=== PATIENT | male | born 1940 | race Caucasian/White ===

== ENCOUNTER 2019-05-31 09:02 | Outpatient (CLI) | payer MEDICARE, SELFPAY ==
--- NOTE | ~2019-05-31 | US_ITS ---
EXAMINATION: US right upper quadrant EXAM DATE: 05/31/2019 09:53 INDICATION: Upper quadrant abdominal pain. TECHNIQUE: Multiple grayscale and Doppler images of the abdomen right upper quadrant were obtained (b y a technologist who performed the scan) and subsequently reviewed. There is no prior study for lanie euceda. FINDINGS: The pancreatic head and body are normal in appearance. The pancreatic tail is not visualized. The l iver has normal echogenicity and contour. There is a 2.7 cm cyst in the liver. There is no evidence of intrahepatic biliary duct dilation. Portal venous flow was seen in the hepatopedal, normal direc tion and has normal Doppler waveform. No right-sided hydronephrosis. Common bile duct measures 3 mm, which is normal. The gallbladder is not specifically identified, but patient states no history of cholecystectomy. Correlation was made with CT scan dated 06/01/2016, 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 This is likely why the gallbladder is not identified on ultrasound. IMPRESSION: 1. 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 2. Liver Cyst. Reviewed, dictated and finalized at location B.
== END 2019-05-31 09:03 | disposition home or self-care (01) ==
LOC: ANHIMG 09:15
PROVIDERS: PCP Internal Medicine; Visit Provider Internal Medicine
DX: R10.9 Unspecified abdominal pain (principal); K76.89 Other specified diseases of liver
CPT/HCPCS: 76705

== ENCOUNTER 2020-12-17 09:41 | Outpatient (CLI) | payer MEDICARE, SELFPAY ==
--- NOTE | 2020-12-17 | ECG_ITS ---
Measurements Intervals [place] Rate: 66 P: 69 [place]: 138 QRS: 14 QRSD: 107 T: 57 QT: 382 QTc: 402 Interpretive Statements SINUS RHYTHM BASELINE ARTIFACT- II, III, AVF NORMAL ECG Electronically Signed On 12-17-2020 12:15:26 CDT by Roque Garner D.O.
--- NOTE | ~2020-12-17 | XR_ITS ---
XR chest 2V DATE: 12/17/2020 10:48 INDICATION: Preoperative testing TECHNIQUE: PA and lateral views COMPARISON: 02/19/2004 2 view chest FINDINGS: Heart size is within normal range. No hilar or mediastinal enlargement. No pulmonary infilt rate or consolidation, pleural effusion or pulmonary vascular congestion or pneumothorax is detected. Scoliosis and degenerative change of the thoracolumbar spine. Old healed left rib fractures. Osteopen ia. IMPRESSION: No active pulmonary disease Reviewed, dictated and finalized at location B. IMPRESSION: No active pulmonary disease
[2020-12-17 10:24] LABS: Basophils Percent Auto 0.6 % (0.2-1.2); Eosinophils Absolute Auto 0.2 K/mm3 (0-0.3); Eosinophils Percent Auto 2.6 % (0-4.4); Hematocrit 40.8 % (42.0-52.0); Hemoglobin 13.8 g/dL (14.0-18.0); Immature Granulocyte Absolute 0.01 K/mm3 (0.00-0.031); Immature Granulocyte Percent A 0.2 % (0-0.5); Lymphocytes Absolute Auto 1.79 K/mm3 (0.9-3.2); Lymphocytes Percent Auto 28.7 % (18.3-44.2); Mean Corpuscular HGB Conc 33.8 g/dl (32-36); Mean Corpuscular Hemoglobin 30.5 pg (26-34); Mean Corpuscular Volume 90.1 fl (80-100); Mean Platelet Volume 9.4 fl (7.4-10.4); Monocytes Absolute Auto 0.6 K/mm3 (0.1-0.6); Neutrophils Absolute Auto 3.7 K/mm3 (1.3-6.7); Neutrophils Percent Auto 58.9 % (45.5-73.1); Platelet Count Result 175 k/mm3 (150-375); Red Blood Count 4.53 M/mm3 (4.6-6.20); Red Cell Distribution Width 14.2 % (11.5-14.5); White Blood Count 6.2 K/mm3 (4.5-10.0)
[2020-12-17 10:34] LABS: INR 1.1; Prothrombin Time 14.1 Seconds (11.1-14.7)
[2020-12-17 10:45] LABS: Alanine Aminotransferase 26 U/L (4-50); Albumin Level 4.4 g/dL (3.5-5.1); Alkaline Phosphatase 54 U/L (38-126); Anion Gap 8 mmol/L (8-16); Aspartate Amino Transferase 28 U/L (17-59); Bilirubin,Total 0.7 mg/dL (0.2-1.3); Blood Urea Nitrogen 19 mg/dL (9-20); Calcium 9.5 mg/dL (8.4-10.2); Carbon Dioxide 28 mmol/L (22-30); Chloride 104 mmol/L (98-107); Estimated Glomerular Filt Rate > 60; Glucose 116 mg/dL (65-110); Potassium 4.2 mmol/L (3.4-5.0); Sodium 140 mmol/L (137-145)
== END 2020-12-17 09:42 | disposition home or self-care (01) ==
PROVIDERS: PCP Internal Medicine
DX: Z01.818 Encounter for other preprocedural examination (principal); M41.9 Scoliosis, unspecified; M85.88 Other specified disorders of bone density and structure, other site; M47.815 Spondylosis without myelopathy or radiculopathy, thoracolumbar region
CPT/HCPCS: 36415; 71046; 80053; 85025; 85610; 85730; 93005

== ENCOUNTER 2023-07-18 14:53 | Emergency (ER) | payer MEDICARE, SELFPAY ==
--- NOTE | ~2023-07-18 | CT_ITS ---
EXAMINATION: CT abdomen pelvis w con DATE: 07/18/2023 16:02 INDICATION: Abdominal pain. TECHNIQUE: Computed tomography (CT) of the abdomen and pelvis was performed with 100 mL Omnipaque 350 intravenous contrast. Automated exposure control and iterative reconstruction technique were employe d. The dose-length product was 360.94 mGy-cm. COMPARISON: CT abdomen and pelvis 06/01/16 FINDINGS: The visualized portions of the lung bases demonstrate mild atelectasis. A calcified left jerson ng nodule is consistent with old granulomatous disease. No pleural effusion. The heart size is normal . There are coronary artery calcifications. No pericardial effusion. There is a small sliding hiatal hernia. There are cysts in the liver measuring up to 3.8 cm. The gallbladder, spleen, pancreas, and a drenal glands are normal. There are cysts in the kidneys measuring up to 2.7 cm on the left. There ar e approximately 10 stones in right kidney measuring up to 3 mm. There are 2 stones in left kidney rosa suring up to 10 mm. The prostate is mildly enlarged. There are no dilated loops of bowel. The appendi x is normal. There is calcified atherosclerosis of the aorta and many of the other arteries. There ar e no pathologically enlarged lymph nodes. There is no free intraperitoneal fluid. There is lumbar dex troscoliosis and severe spondylosis. There is mild thoracic spondylosis. IMPRESSION: 1. Small sliding hiatal hernia. Reviewed, dictated and finalized at location E.
--- NOTE | 2023-07-18 14:56 | ED.ABDPAIN ---
HPI - Abdominal Pain General Chief Complaint: Abdominal Pain Stated Complaint: abd pain Time Seen by Provider: 07/18/23 14:56 Source: patient and family Mode of arrival: ambulatory Limitations: no limitations History of Present Illness HPI narrative: 83 years old white male came from home by private car with his family complaining of sharp abdominal pain across the mid abdomen, intermittent started 2 days ago. He denies aggravating or relieving factors. He denies radiation of pain, he denies any fever, chills, nausea, vomiting, urinary symptoms or constipation. History of abdominal hernia repair, appendectomy hypertension hyperlipidemia not on aspirin or anticoagulant medications, does not smoke or drink or use drugs Currently patient is asymptomatic he reports no abdominal pain at this time Related Data Home Medications Medication Instructions Recorded Confirmed amlodipine 5 mg tablet 5 mg PO DAILY 04/15/21 04/15/21 lorazepam 1 mg tablet 3 mg PO DAILY 04/15/21 04/15/21 magnesium 250 mg tablet 250 mg PO DAILY 04/15/21 04/15/21 multivitamin 1 tablet PO DAILY 04/15/21 04/15/21 nortriptyline 10 mg capsule 10 mg PO DAILY 04/15/21 04/15/21 omeprazole 20 mg capsule,delayed 20 mg PO DAILY 04/15/21 04/15/21 release simvastatin 40 mg tablet 40 mg PO DAILY 04/15/21 04/15/21 Allergies Allergy/AdvReac Type Severity Reaction Status Date / Time Penicillins Allergy Unknown unknown Verified 04/15/21 13:23 Review of Systems Review of Systems: All systems reviewed & are unremarkable except as noted in HPI and below PMFSH Social History Social History Smoking status: Never smoker Smoking end date: 03/22/94 Alcohol intake: never Substance use: never Exam Narrative: General appearance: Well-developed, well-nourished Skin: Normal color Head: Normocephalic, nontraumatic Eyes: Clear conjunctiva ENT: Oropharynx normal, ears normal, nose normal Neck: Supple, nontender Chest and respiratory: Airway patent, no respiratory distress, no accessory muscle use Heart: Regular rate/rhythm Abdomen: Soft, nontender, no organomegaly, quiet bowel sounds Vascular: Normal peripheral pulses, normal capillary refill. Musculoskeletal: Normal range of motion, nontender back Neurologic: Alert and oriented ?3, [employer] is normal as tested, no gross motor deficit Course Vital Signs Vital signs: Vital Signs Temperature 36.4 C L 07/18/23 14:59 Pulse Rate 80 07/18/23 14:59 Respiratory Rate 20 07/18/23 14:59 Blood Pressure 144/90 H 07/18/23 14:59 Pulse Oximetry 98 07/18/23 14:59 Oxygen Delivery Room Air 07/18/23 14:59 Temperature 36.6 C 07/18/23 15:31 Pulse Rate 73 07/18/23 16:35 Respiratory Rate 20 07/18/23 16:35 Blood Pressure 151/91 H 07/18/23 16:35 Pulse Oximetry 100 07/18/23 16:35 Oxygen Delivery Room Air 07/18/23 14:59 MDM - Abdominal Pain MDM Narrative Medical decision making narrative: 83 years old white male came with sharp stabbing pain across the mid abdomen started 2 days ago, on arrival to the ED is asymptomatic. Differential diagnosis anxiety like symptoms, constipation, colitis, diverticulitis, cholecystitis, gastritis or esophagitis. Blood workup today showed no acute abnormalities. Urinalysis showed no acute abnormalities CT abdomen pelvis with IV contrast showed no acute abnormality except sliding hiatal hernia. The diagnosis of abdominal pain is not clear at this time, my plan to discharge patient on Bentyl for the next 5 days and follow up with his family physician for further evaluation. Differential Diagnosis Differential diagnosis: Likely
[2023-07-18 14:59] VITALS: BP 144/90; PULSE 80; RESP 20; TEMP 36.4; O2SAT 98
[2023-07-18 15:18] LABS: Basophils Absolute Auto 0.1 K/mm3 (0.0-0.1); Basophils Percent Auto 0.7 % (0.2-1.2); Eosinophils Absolute Auto 0.2 K/mm3 (0-0.3); Hematocrit 38.5 % (42.0-52.0); Hemoglobin 12.8 g/dL (14.0-18.0); Immature Granulocyte Absolute 0.02 K/mm3 (0.00-0.031); Immature Granulocyte Percent A 0.2 % (0-0.5); Lymphocytes Absolute Auto 1.75 K/mm3 (0.9-3.2); Lymphocytes Percent Auto 20.1 % (18.3-44.2); Mean Corpuscular HGB Conc 33.2 g/dl (32-36); Mean Corpuscular Hemoglobin 29.2 pg (26-34); Mean Corpuscular Volume 87.9 fl (80-100); Mean Platelet Volume 9.2 fl (7.4-10.4); Monocytes Absolute Auto 0.8 K/mm3 (0.1-0.6); Monocytes Percent Auto 9.2 % (2.6-8.5); Neutrophils Absolute Auto 5.9 K/mm3 (1.3-6.7); Neutrophils Percent Auto 67.8 % (45.5-73.1); Platelet Count Result 203 k/mm3 (150-375); Red Blood Count 4.38 M/mm3 (4.6-6.20); Red Cell Distribution Width 13.9 % (11.5-14.5); White Blood Count 8.7 K/mm3 (4.5-10.0)
[2023-07-18] MEDS: SODIUM CHLORIDE 0.9% IV 1,000 ML 999 ML IV CONT (15:22)
[2023-07-18 15:31] VITALS: BP 146/91; PULSE 72; RESP 20; TEMP 36.6; O2SAT 98
[2023-07-18 15:31] LABS: Alanine Aminotransferase 25 U/L (6-50); Albumin Level 4.3 g/dL (3.5-5.1); Alkaline Phosphatase 72 U/L (38-126); Anion Gap 5 mmol/L (4-12); Aspartate Amino Transferase 28 U/L (17-59); Bilirubin,Total 0.6 mg/dL (0.2-1.3); Blood Urea Nitrogen 19 mg/dL (9-20); Calcium 9.4 mg/dL (8.4-10.2); Carbon Dioxide 27 mmol/L (22-30); Chloride 104 mmol/L (98-107); Estimated CRCL calculation 46 ml/min; Estimated Glomerular Filt Rate > 60; Glucose 98 mg/dL (65-110); Lipase 121 U/L (23-300); Potassium 4.8 mmol/L (3.4-5.0); Sodium 136 mmol/L (137-145)
[2023-07-18 15:32] LABS: Lactic Acid Reflex 1.4 mmol/L (0.7-2.0)
[2023-07-18 15:59] LABS: Appearance Urine Clear (Clear); Bacteria Urine None Seen /hpf; Bilirubin Urine Negative (Negative); Blood Urine Negative (Negative); Color Urine Yellow (Yellow); Glucose Urine UA Negative (Negative); Ketones Urine Negative (Negative); Leukocyte Esterase Ur Trace LEU/UL (Negative); Nitrate Urine Negative (Negative); Protein Urine Negative (Negative); RBC Urine 0-2 /hpf (0-2); Specific Grav Ur 1.007 (1.001-1.035); Squamous Epithelial Cell Urine None Seen /hpf (Few); Urobilinogen Urine 0.2 mg/dL (<2.0); WBC Urine 0-5 /hpf (0-3)
[2023-07-18 16:01] LABS: Add Urine Microscopic? YES
[2023-07-18 16:35] VITALS: BP 151/91; PULSE 73; RESP 20; O2SAT 100
[2023-07-18 16:44] VITALS: BP 151/91; PULSE 71; RESP 20; O2SAT 99
== END 2023-07-18 16:45 | disposition home or self-care (01) ==
PROVIDERS: Emergency Provider Emergency Medicine; PCP Internal Medicine
DX: R10.9 Unspecified abdominal pain (principal); Z87.891 Personal history of nicotine dependence; K44.9 Diaphragmatic hernia without obstruction or gangrene
CPT/HCPCS: 36415; 74177; 80053; 81001; 83605; 83690; 85025; 96360; 99284; J7030; Q9967

== ENCOUNTER 2023-08-25 12:35 | Outpatient (CLI) | payer MEDICARE, SELFPAY ==
--- NOTE | 2023-08-26 08:54 | WPDPFTINT ---
PFT Procedure Performed PFT Procedure Performed Spirometry with Pre/Post Bronchodilator Plethysmography (Lung Vol) Diffusing Cap (DLCO) Flow Vol Loop PFT Interpretation Lung volumes were measured with the body plethysmography method. Lung volumes are unremarkable. Spirometry showed and normal expiratory flow rates and a normal FEV1 to FVC ratio of 82%. Following administration of a bronchodilator there was no significant increase in the expiratory flow rates. Lung diffusion capacity is within the normal range at 87% predicted. The flow volume loop is unremarkable. Impression: Spirometry, lung volumes, and lung diffusion capacity all within the normal range.
== END 2023-08-25 12:36 | disposition home or self-care (01) ==
LOC: ANHPFT 12:38
PROVIDERS: PCP Internal Medicine; Visit Provider Internal Medicine
DX: J45.909 Unspecified asthma, uncomplicated (principal)
CPT/HCPCS: 94060; 94726; 94729

== ENCOUNTER 2023-12-14 08:09 | Emergency (ER) | payer MEDICARE, SELFPAY ==
--- NOTE | ~2023-12-14 | US_ITS ---
RIGHT LOWER EXTREMITY VENOUS ULTRASOUND Ordering provider: Abel Hollins MD History: . Calf pain, recent hip fracture . Comparison: None. FINDINGS: --COMMON FEMORAL: Patent and free of thrombus. Normal compressibility, phasic flow and augmentation. --PROXIMAL SUPERFICIAL FEMORAL: Patent and free of thrombus. Normal compressibility, phasic flow and augmentation. --DISTAL SUPERFICIAL FEMORAL: Patent and free of thrombus. Normal compressibility, phasic flow and au gmentation. --POPLITEAL: Patent and free of thrombus. Normal compressibility, phasic flow and augmentation. --POSTERIOR TIBIAL: Patent and free of thrombus. Normal compressibility, phasic flow and augmentation . IMPRESSION: Negative right lower extremity venous US. No deep vein thrombosis. Reviewed, dictated and finalized at location A.
[2023-12-14 08:19] VITALS: BP 159/90; PULSE 72; RESP 20; TEMP 36.6; O2SAT 100
[2023-12-14] MEDS: HYDROcodone/acetaminophen (*CRX) 5-325 MG TABLET 1 TAB PO (09:24)
[2023-12-14] MEDS: diazePAM INJ (*CRX) 10 MG/2 ML SYRINGE 5 MG IV PUSH (09:38)
[2023-12-14 09:43] VITALS: BP 126/80; PULSE 81; RESP 18; O2SAT 95
[2023-12-14 09:52] LABS: Basophils Absolute Auto 0.1 K/mm3 (0.0-0.1); Basophils Percent Auto 0.5 % (0.2-1.2); Eosinophils Absolute Auto 0.6 K/mm3 (0-0.3); Hematocrit 36.4 % (42.0-52.0); Hemoglobin 11.6 g/dL (14.0-18.0); Immature Granulocyte Absolute 0.03 K/mm3 (0.00-0.031); Immature Granulocyte Percent A 0.3 % (0-0.5); Lymphocytes Absolute Auto 0.86 K/mm3 (0.9-3.2); Lymphocytes Percent Auto 9.4 % (18.3-44.2); Mean Corpuscular HGB Conc 31.9 g/dl (32-36); Mean Corpuscular Hemoglobin 27.1 pg (26-34); Mean Platelet Volume 9.1 fl (7.4-10.4); Monocytes Absolute Auto 0.7 K/mm3 (0.1-0.6); Monocytes Percent Auto 7.5 % (2.6-8.5); Neutrophils Absolute Auto 6.9 K/mm3 (1.3-6.7); Neutrophils Percent Auto 75.3 % (45.5-73.1); Platelet Count Result 192 k/mm3 (150-375); Red Blood Count 4.28 M/mm3 (4.6-6.20); Red Cell Distribution Width 17.3 % (11.5-14.5); White Blood Count 9.2 K/mm3 (4.5-10.0)
[2023-12-14 10:06] LABS: Alanine Aminotransferase 22 U/L (6-50); Albumin Level 3.9 g/dL (3.5-5.1); Alkaline Phosphatase 238 U/L (38-126); Anion Gap 0 mmol/L (4-12); Aspartate Amino Transferase 29 U/L (17-59); Bilirubin,Total 0.6 mg/dL (0.2-1.3); Blood Urea Nitrogen 21 mg/dL (9-20); Calcium 9.1 mg/dL (8.4-10.2); Carbon Dioxide 31 mmol/L (22-30); Chloride 101 mmol/L (98-107); Estimated CRCL calculation 56 ml/min; Estimated Glomerular Filt Rate > 60; Glucose 89 mg/dL (65-110); Sodium 132 mmol/L (137-145)
[2023-12-14 10:17] LABS: INR 1.1; Partial Thromboplastin Time 28.3 Seconds (22.3-36.8); Prothrombin Time 15.1 Seconds (11.1-14.7)
[2023-12-14 10:42] VITALS: BP 112/68; PULSE 73; RESP 16; O2SAT 98
--- NOTE | 2023-12-14 11:21 | ED.GENADULT ---
HPI - General Adult General Chief complaint: Extremity Injury, Lower Stated complaint: RLL pain Time Seen by Provider: 12/14/23 08:41 History of Present Illness HPI narrative: This is an 83-year-old male presenting ED with chief complaint of right calf pain. Patient was recently diagnosed with a nondisplaced pelvic fracture. He has been treating non operatively. He has noticed that he has been having increased pain in his right calf as he has been favoring his right leg. Patient has not taken anything for pain control. He is not on anticoagulation. No swelling of the leg that he has noted. Related Data Home Medications Medication Instructions Recorded Confirmed amlodipine 5 mg tablet 5 mg PO DAILY 04/15/21 12/02/23 lorazepam 1 mg tablet 3 mg PO DAILY 04/15/21 12/02/23 multivitamin 1 tablet PO DAILY 04/15/21 12/02/23 simvastatin 40 mg tablet 40 mg PO DAILY 04/15/21 12/02/23 coenzyme Q10 200 mg capsule 200 mg PO DAILY 10/07/23 12/02/23 gabapentin 300 mg capsule 300 mg PO DAILY 10/07/23 12/02/23 Allergies Allergy/AdvReac Type Severity Reaction Status Date / Time Penicillins Allergy Unknown unknown Verified 12/02/23 14:09 [facility] Past Medical History Medical History Asthma BPH (benign prostatic hyperplasia) Chronic pain GERD (gastroesophageal reflux disease) HTN (hypertension) Hypercholesterolemia Osteoarthritis Spinal stenosis Surgical History Surgical History H/O uvulectomy History of knee replacement Hx of appendectomy Hx of tonsillectomy Family History Family History Mother Hypertension Acute myocardial infarction Manic depression Father Hypertension Cerebrovascular accident Carcinoma of colon Social History Social History Years smoked: 7 Smoking status: Former smoker Second hand tobacco smoke exposure: No Smoking end date: 03/22/65 Alcohol intake: never Substance use: never Substance use type: does not use Do You Feel Safe in your Home?: Yes Lack of Transportation: No Lack of Food: Never True Current Housing: I Have Housing Concerned About Future Housing: No Difficulty Paying Gas/Electric Bills: No Difficulty Paying for Meds: YES Currently Unemployed: No Education: High School Diploma/GED Difficulty w/ Childcare or Family Care: No Living arrangements: alone Occupation/Education: retired 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 Head: atraumatic. EYES: EOMI, NOSE: Atraumatic NECK: Trachea midline RESPIRATORY: No increased rate of breathing CARDIOVASCULAR: RRR, ABDOMINAL: Non-distended MUSCULOSKELETAl: Focal exam of the right leg revealed no swelling or edema. All compartments are soft. No increased pain with plantar flexion or dorsal flexion. Pulses are strong. Neuro vascularly intact. NEURO: Alert. Moving 4/4 extremities SKIN:: Warm, dry. Normal color PSYCHIATRIC: Normal affect Course Vital Signs Vital signs: Vital Signs Temperature 97.9 F 12/14/23 08:19 Pulse Rate 72 12/14/23 08:19 Respiratory Rate 20 12/14/23 08:19 Blood Pressure 159/90 H 12/14/23 08:19 Pulse Oximetry 100 12/14/23 08:19 Oxygen Delivery Room Air 12/14/23 08:19 Temperature 97.9 F 12/14/23 08:19 Pulse Rate 73 12/14/23 10:42 Respiratory Rate 16 12/14/23 10:42 Blood Pressure 112/68 12/14/23 10:42 Pulse Oximetry 98 12/14/23 10:42 Oxygen Delivery Room Air 12/14/23 08:19 Medical Decision Making MDM Narrative Medical decision making narrative: -Course: 83-year-old male presenting with right calf pain. DVT scan was negative. All compartments are soft.
[2023-12-14 11:43] VITALS: BP 139/75; PULSE 64; RESP 18; O2SAT 100
== END 2023-12-14 11:44 | disposition home or self-care (01) ==
PROVIDERS: Emergency Provider Emergency Medicine; PCP Internal Medicine
DX: M79.661 Pain in right lower leg (principal); J45.909 Unspecified asthma, uncomplicated; N40.0 Benign prostatic hyperplasia without lower urinary tract symptoms; G89.29 Other chronic pain; K21.9 Gastro-esophageal reflux disease without esophagitis; I10 Essential (primary) hypertension; E78.5 Hyperlipidemia, unspecified; M19.90 Unspecified osteoarthritis, unspecified site
CPT/HCPCS: 36415; 80053; 85025; 85610; 85730; 93971; 96374; 99284; A9270; J3360

== ENCOUNTER 2023-12-16 08:40 | Emergency (ER) | payer MEDICARE, SELFPAY ==
[2023-12-16 08:47] VITALS: BP 152/67; PULSE 117; RESP 20; TEMP 36.9; O2SAT 100
[2023-12-16 09:11] VITALS: BP 122/70; PULSE 103; RESP 31; O2SAT 100
--- NOTE | 2023-12-16 09:20 | ED.ALLEREA ---
HPI - Allergic Reaction General Chief complaint: Allergic Reaction Stated complaint: RASH ALL OVER Time Seen by Provider: 12/16/23 08:59 Source: patient and old records reviewed Mode of arrival: EMS Limitations: no limitations and altered mental status History of Present Illness HPI narrative: Patient is an 83-year-old male who presents the ED with report of right calf pain and rash. Patient reports he has had pain throughout his right calf for the last 3-4 days. He recently sustained a pelvic fracture which was treated non operatively. Seen in the ED here 2 days ago and had a negative DVT ultrasound. Was thought to be related to over compensation injury as patient does admit he has been favoring his right leg since the fx. Patient was given Valium and Tiger in the ED here with improvement of pain. Discharged with muscle relaxers and oxycodone. Patient reports soon after leaving the hospital for his ED visit, he developed a diffuse rash. Initially noticed on his legs, now spread throughout his trunk, chest, back, face. States the rash is very itchy. He called his primary care doctor yesterday and was prescribed a Medrol Dosepak. He took the 1st dose of steroids yesterday. He also took Benadryl last night without improvement. He did take the muscle relaxer and oxycodone yesterday, but states the rash started before this. Denies any other new medications, soaps, laundry detergents, body wash, lotions, foods. Patient does admit to being very anxious. Has history of anxiety. He denies shortness of breath, swelling of lips /tongue/throat, fevers. Related Data Home Medications Medication Instructions Recorded Confirmed amlodipine 5 mg tablet 5 mg PO DAILY 04/15/21 12/02/23 lorazepam 1 mg tablet 3 mg PO DAILY 04/15/21 12/02/23 multivitamin 1 tablet PO DAILY 04/15/21 12/02/23 simvastatin 40 mg tablet 40 mg PO DAILY 04/15/21 12/02/23 coenzyme Q10 200 mg capsule 200 mg PO DAILY 10/07/23 12/02/23 gabapentin 300 mg capsule 300 mg PO DAILY 10/07/23 12/02/23 Allergies Allergy/AdvReac Type Severity Reaction Status Date / Time hydrocodone Allergy Mild Itching Verified 12/16/23 12:59 Penicillins Allergy Unknown unknown Verified 12/16/23 09:19 Sulfa (Sulfonamide Allergy Rash Verified 12/16/23 09:19 Antibiotics) Review of Systems Review of Systems: All systems reviewed & are unremarkable except as noted in HPI. All systems reviewed & are unremarkable except as noted in HPI and below PMFSH Past Medical History Medical History Anxiety Asthma BPH (benign prostatic hyperplasia) Chronic pain GERD (gastroesophageal reflux disease) HTN (hypertension) Hypercholesterolemia Osteoarthritis Spinal stenosis Surgical History Surgical History H/O uvulectomy History of knee replacement Hx of appendectomy Hx of tonsillectomy Family History Family History Mother Hypertension Acute myocardial infarction Manic depression Father Hypertension Cerebrovascular accident Carcinoma of colon Social History Social History Years smoked: 7 Smoking status: Former smoker Second hand tobacco smoke exposure: No Smoking end date: 03/22/65 Alcohol intake: never Substance use: never Substance use type: does not use Do You Feel Safe in your Home?: Yes Lack of Transportation: No Lack of Food: Never True Current Housing: I Have Housing Concerned About Future Housing: No Difficulty Paying Gas/Electric Bills: No Difficulty Paying for Meds: YES Currently Unemployed: No Education: High School Diploma/GED Difficulty w/ Childcare or Family Care: No Living arrangements: alone Occupation/Education: retired Additional occupation/education comments
[2023-12-16] MEDS: diphenhydrAMINE HCl INJ 50 MG/ML VIAL 25 MG IV PUSH (09:25)
[2023-12-16] MEDS: methylPREDNISolone SOD SUCC 125 MG VIAL IV PUSH (09:29)
[2023-12-16] MEDS: FAMOTIDINE 20 MG/2 ML VIAL IV PUSH (09:31)
[2023-12-16] MEDS: KETOROLAC 15 MG/ML VIAL (*BKC) IV PUSH (09:38)
[2023-12-16] MEDS: ACETAMINOPHEN 500 MG TABLET 1000 MG PO (09:39)
[2023-12-16 09:41] VITALS: BP 140/71; PULSE 104; RESP 20; O2SAT 99
[2023-12-16 09:45] LABS: Basophils Percent Auto 0.3 % (0.2-1.2); Eosinophils Absolute Auto 0.9 K/mm3 (0-0.3); Eosinophils Percent Auto 5.4 % (0-4.4); Hematocrit 35.8 % (42.0-52.0); Hemoglobin 11.7 g/dL (14.0-18.0); Immature Granulocyte Absolute 0.12 K/mm3 (0.00-0.031); Immature Granulocyte Percent A 0.8 % (0-0.5); Lymphocytes Absolute Auto 1.01 K/mm3 (0.9-3.2); Lymphocytes Percent Auto 6.4 % (18.3-44.2); Mean Corpuscular HGB Conc 32.7 g/dl (32-36); Mean Corpuscular Hemoglobin 27.1 pg (26-34); Mean Corpuscular Volume 82.9 fl (80-100); Mean Platelet Volume 9.7 fl (7.4-10.4); Monocytes Absolute Auto 0.4 K/mm3 (0.1-0.6); Monocytes Percent Auto 2.7 % (2.6-8.5); Neutrophils Absolute Auto 13.3 K/mm3 (1.3-6.7); Neutrophils Percent Auto 84.4 % (45.5-73.1); Platelet Count Result 259 k/mm3 (150-375); Red Blood Count 4.32 M/mm3 (4.6-6.20); Red Cell Distribution Width 17.6 % (11.5-14.5); White Blood Count 15.7 K/mm3 (4.5-10.0)
[2023-12-16 09:57] LABS: Alanine Aminotransferase 29 U/L (6-50); Alkaline Phosphatase 237 U/L (38-126); Anion Gap 10 mmol/L (4-12); Aspartate Amino Transferase 37 U/L (17-59); Bilirubin,Total 0.5 mg/dL (0.2-1.3); Blood Urea Nitrogen 25 mg/dL (9-20); Calcium 9.4 mg/dL (8.4-10.2); Carbon Dioxide 21 mmol/L (22-30); Chloride 104 mmol/L (98-107); Estimated CRCL calculation 49 ml/min; Estimated Glomerular Filt Rate > 60; Glucose 101 mg/dL (65-110); Magnesium 2.1 mg/dL (1.6-2.3); Potassium 4.7 mmol/L (3.4-5.0); Sodium 135 mmol/L (137-145)
[2023-12-16 10:00] LABS: INR 1.2; Prothrombin Time 15.8 Seconds (11.1-14.7)
[2023-12-16 10:01] LABS: Partial Thromboplastin Time 28.7 Seconds (22.3-36.8)
[2023-12-16] MEDS: traMADol HCL (*CRX) 25 MG TABLET PO (11:07)
[2023-12-16 11:11] VITALS: BP 125/69; PULSE 90; RESP 20; TEMP 36.4; O2SAT 98
[2023-12-16] MEDS: hydrOXYzine HCL 25 MG TABLET PO (11:38)
[2023-12-16] MEDS: LORazepam INJ (*CRX) 2 MG/ML VIAL 0.5 MG IV PUSH (11:39)
[2023-12-16 13:20] VITALS: BP 142/70; PULSE 77; RESP 16; TEMP 36.5; O2SAT 99
== END 2023-12-16 13:21 | disposition home or self-care (01) ==
PROVIDERS: Emergency Provider Physician Assistant; PCP Internal Medicine
DX: M79.661 Pain in right lower leg (principal); F41.9 Anxiety disorder, unspecified; T78.40XA Allergy, unspecified, initial encounter; X58.XXXA Exposure to other specified factors, initial encounter; I10 Essential (primary) hypertension; E78.00 Pure hypercholesterolemia, unspecified; J45.909 Unspecified asthma, uncomplicated; N40.0 Benign prostatic hyperplasia without lower urinary tract symptoms; K21.9 Gastro-esophageal reflux disease without esophagitis; M19.90 Unspecified osteoarthritis, unspecified site; Z79.899 Other long term (current) drug therapy
CPT/HCPCS: 36415; 80053; 83735; 85025; 85610; 85730; 96374; 96375; 99284; A9270; J1200; J1885; J2060; J2919

== ENCOUNTER 2023-12-20 21:14 | Emergency (ER) | payer MEDICARE, SELFPAY ==
--- NOTE | ~2023-12-20 | CT_ITS ---
EXAMINATION: CT lumbar spine wo con DATE: 12/21/2023 08:07 INDICATION: Right-sided radicular pain of the lumbar spine. TECHNIQUE: Computed tomography (CT) of the lumbar spine was performed without intravenous contrast. A utomated exposure control and iterative reconstruction technique were employed. The dose-length produ ct was 343.92 mGy-cm. COMPARISON: Lumbar spine radiographs dated 09/25/2022 FINDINGS: 17 degree lumbar dextroscoliosis. 4 mm anterolisthesis L4 on L5 and 2 mm retrolisthesis L5 on S1. There is severe left-sided disc height loss at L2-L3 and L3-L4 with associated left-sided pred ominant degenerative endplate remodeling with some minimal associated vertebral body height loss. Rem aining vertebral body heights are normal. There is additional severe disc height loss at L5-S1 and wi th right-sided predominance at L4-L5. Moderate disc height loss at T10-T11 through L1-L2. There are a cute to subacute appearing sagittal oriented bilateral sacral insufficiency fractures there is a nond isplaced horizontal insufficiency fracture at S2. No fracture of the visualized lumbar or caudal-most thoracic spine. Bilateral nonobstructing renal stones measuring 4 mm at the left kidney and 2 mm the lower pole of the right kidney. There are bilateral renal parapelvic cysts. 1.3 cm long thin linear calcification at the lower pole of the left kidney most likely either atherosclerotic calcification o r mural calcific a shallower of the parapelvic cysts. The following disc levels are specifically disc ussed: T11-T12: Disc is bulging. There is mild left and severe right facet joint osteoarthritis. There is mi ld left and moderate to severe right neural foraminal stenosis. There is mild to moderate central can al stenosis. T12-L1: Disc is bulging. There is mild left and moderate right facet joint osteoarthritis. There is m ild bilateral neural foraminal stenosis. There is mild central canal stenosis. L1-L2: Disc is bulging. There is mild to moderate left and moderate right facet joint osteoarthritis. There is mild to moderate bilateral neural foraminal stenosis. There is mild central canal stenosis. L2-L3: Disc is bulging. There is moderate bilateral facet joint osteoarthritis. There is moderate jez ateral neural foraminal stenosis. Posterior decompression with right hemilaminotomy. There is mild ce ntral canal stenosis. L3-L4: Disc is bulging. There is moderate bilateral facet joint osteoarthritis. There is moderate jez ateral, left greater than right neural foraminal stenosis. Posterior decompression with right hemilam inotomy. There is no central canal stenosis. L4-L5: Disc is bulging. There is severe bilateral, right greater than left facet joint osteoarthritis . There is moderate bilateral neural foraminal stenosis. Posterior decompression with bilateral hemil aminotomies. There is no central canal stenosis. L5-S1: Disc is bulging. There is moderate bilateral, right greater than left. facet joint osteoarthri tis. There is moderate bilateral neural foraminal stenosis. Posterior decompression with right-sided hemilaminotomy. There is no central canal stenosis. IMPRESSION: 1. 17 degrees lumbar dextroscoliosis with severe spondylosis. 2. Posterior decompression with laminotomies at several levels in the mid to lower lumbar spine. 3. Bilateral nonobstructing nephrolithiasis. Reviewed, dictated and finalized at location A. IMPRESSION: 1. 17 degrees lumbar dextroscoliosis with severe spondylosis. 2. Posterior decompression with laminotomies at several levels in the mid to lo wer lumbar spine. 3. Bilateral nonobstructing nephrolithiasis.
--- NOTE | ~2023-12-20 | XR_ITS ---
XR hip LT min 3V w AP pelvis Ordering provider: Abel Hollins MD History: . F/u for non-displaced pelvic fx FALL X 2 MOS AGO . Comparison: December 02, 2023 FINDINGS: BONES: Left acetabular fracture is noted unchanged from previous examination. Fracture of the left in ferior pubic ramus is also noted. Possible fracture in the left superior pubic ramus. HIP JOINT SPACES: Mild bilateral osteoarthritic changes. SACROILIAC JOINT SPACES/LUMBAR SPINE: The sacroiliac joint spaces are normal. Mild degenerative cruz es of the visualized lower lumbar spine. PUBIC SYMPHYSIS: Normal. SOFT TISSUES: Normal. IMPRESSION: Fracture of the left acetabulum and left inferior pubic ramus. Possible fracture in the left superior pubic ramus. Reviewed, dictated and finalized at location A. IMPRESSION: Fracture of the left acetabulum and left inferior pubic ramus. Possible fractur e in the left superior pubic ramus.
[2023-12-20 21:18] VITALS: BP 139/90; PULSE 96; RESP 14; TEMP 36.8; O2SAT 100
[2023-12-21 05:08] VITALS: BP 156/124; PULSE 89; RESP 18; O2SAT 100
--- NOTE | 2023-12-21 05:08 | PC.NURSE ---
pt c/o right lower back pain that shoots down his right leg to his heel. Pt says he believes it is the result of a fall he had in October that he has already been evaluated for. Pt says he was told by an orthopedic doctor here at [facility] that his injuries would heal on their own. Pt has been using a walker at home since the fall in October
[2023-12-21 05:22] VITALS: BP 150/88; PULSE 89; O2SAT 100
[2023-12-21] MEDS: KETOROLAC 30 MG/ML VIAL (*BKC) IM (07:40)
[2023-12-21] MEDS: traMADol HCL (*CRX) 50 MG TABLET PO (07:40)
[2023-12-21] MEDS: ACETAMINOPHEN 500 MG TABLET 1000 MG PO (07:41)
[2023-12-21] MEDS: LORazepam (*CRX) 1 MG TABLET PO (07:41)
[2023-12-21 07:46] VITALS: BP 176/90; PULSE 85; RESP 16; O2SAT 100
--- NOTE | 2023-12-21 10:13 | ED.GENADULT ---
HPI - General Adult General Chief complaint: Back Pain/Injury Stated complaint: back pain going down right leg Time Seen by Provider: 12/21/23 07:02 History of Present Illness HPI narrative: This is an 83-year-old male with anxiety and a nondisplaced left pelvic fracture presenting for right leg pain. Patient was seen on 12/13 for right leg calf pain and had negative DVT scan. That time was believed to be a compensation injuries he had been favoring his right leg. He was then seen 2 days later for an itchy rash which was believed to be due to the [place]. Now he is having an achy pain in lower back radiating down the side of leg. Is worse with movement. Patient ran out his pain medications. He has not been taking his lorazepam because he has thought he was not supposed to take it along with muscle relaxers and now he is incredibly anxious. No falls or other complaints. Related Data Home Medications Medication Instructions Recorded Confirmed amlodipine 5 mg tablet 5 mg PO DAILY 04/15/21 12/02/23 lorazepam 1 mg tablet 3 mg PO DAILY 04/15/21 12/02/23 multivitamin 1 tablet PO DAILY 04/15/21 12/02/23 simvastatin 40 mg tablet 40 mg PO DAILY 04/15/21 12/02/23 coenzyme Q10 200 mg capsule 200 mg PO DAILY 10/07/23 12/02/23 gabapentin 300 mg capsule 300 mg PO DAILY 10/07/23 12/02/23 Allergies Allergy/AdvReac Type Severity Reaction Status Date / Time hydrocodone Allergy Mild Itching Verified 12/16/23 12:59 Penicillins Allergy Unknown unknown Verified 12/16/23 09:19 Sulfa (Sulfonamide Allergy Rash Verified 12/16/23 09:19 Antibiotics) [facility] Past Medical History Medical History Anxiety Asthma BPH (benign prostatic hyperplasia) Chronic pain GERD (gastroesophageal reflux disease) HTN (hypertension) Hypercholesterolemia Osteoarthritis Spinal stenosis Surgical History Surgical History H/O uvulectomy History of knee replacement Hx of appendectomy Hx of tonsillectomy Family History Family History Mother Hypertension Acute myocardial infarction Manic depression Father Hypertension Cerebrovascular accident Carcinoma of colon Social History Social History Years smoked: 7 Smoking status: Former smoker Second hand tobacco smoke exposure: No Smoking end date: 03/22/65 Alcohol intake: never Substance use: never Substance use type: does not use Do You Feel Safe in your Home?: Yes Lack of Transportation: No Lack of Food: Never True Current Housing: I Have Housing Concerned About Future Housing: No Difficulty Paying Gas/Electric Bills: No Difficulty Paying for Meds: YES Currently Unemployed: No Education: High School Diploma/GED Difficulty w/ Childcare or Family Care: No Living arrangements: alone Occupation/Education: retired 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 EYES: EOMI, NOSE: Atraumatic NECK: Trachea midline RESPIRATORY: No increased rate of breathing CARDIOVASCULAR: RRR, ABDOMINAL: Non-distended MUSCULOSKELETAl: Focal exam of the right leg revealed no overlying skin changes. No areas of tenderness. Compartments are soft. No overlying skin changes. Straight leg negative. Pulses intact NEURO: Alert. Moving 4/4 extremities SKIN:: Warm, dry. Normal color PSYCHIATRIC: Normal affect Course Vital Signs Vital signs: Vital Signs Temperature 98.2 F 12/20/23 21:18 Pulse Rate 96 12/20/23 21:18 Respiratory Rate 14 12/20/23 21:18 Blood Pressure 139/90 12/20/23 21:18 Pulse Oximetry 100 12/20/23 21:18 Oxygen Delivery Room Air 12/20/23 21:18
[2023-12-21 11:32] VITALS: BP 152/80; PULSE 82; RESP 16; O2SAT 98
== END 2023-12-21 11:34 | disposition home or self-care (01) ==
PROVIDERS: Emergency Provider Emergency Medicine; PCP Internal Medicine
DX: M47.26 Other spondylosis with radiculopathy, lumbar region (principal); F41.9 Anxiety disorder, unspecified; S32.592D Other specified fracture of left pubis, subsequent encounter for fracture with routine healing; S32.402D Unspecified fracture of left acetabulum, subsequent encounter for fracture with routine healing; I10 Essential (primary) hypertension; E78.00 Pure hypercholesterolemia, unspecified; J45.909 Unspecified asthma, uncomplicated; N40.0 Benign prostatic hyperplasia without lower urinary tract symptoms; K21.9 Gastro-esophageal reflux disease without esophagitis; M19.90 Unspecified osteoarthritis, unspecified site; Z96.659 Presence of unspecified artificial knee joint; Z87.891 Personal history of nicotine dependence; N20.0 Calculus of kidney; X58.XXXD Exposure to other specified factors, subsequent encounter
CPT/HCPCS: 72131; 73502; 96372; 99284; A9270; J1885

== ENCOUNTER 2024-01-10 01:28 | Day surgery (SDC) | payer MEDICARE, SELFPAY ==
[2023-12-24 15:17] VITALS: BMI 23.6
--- NOTE | 2024-01-10 11:04 | WPDANESEPPF ---
Anes - Initial Pre Proc Eval Procedure: Operation Date: 01/10/24 12:30 Proposed Procedures p Esophagogastroduodenoscopy - Sim Guzmán MD Date/Time: 01/10/24 11:04 Surgeon: Sim Guzmán MD Pre Op Diagnosis: GERD Patient Data Age: 83 Gender: M Height: 1.75 m Weight: 72.6 kg Allergies Allergy/AdvReac Type Severity Reaction Status Date / Time hydrocodone Allergy Mild Itching Verified 12/24/23 15:09 Penicillins Allergy Unknown unknown Verified 12/24/23 15:09 Sulfa (Sulfonamide Allergy Rash Verified 12/24/23 15:09 Antibiotics) Home Medications Medication Instructions Recorded Confirmed Type amlodipine 5 mg tablet 5 mg PO DAILY 04/15/21 12/24/23 History lorazepam 1 mg tablet 3 mg PO DAILY 04/15/21 12/24/23 History multivitamin 1 tablet PO DAILY 04/15/21 12/24/23 History simvastatin 40 mg tablet 40 mg PO DAILY 04/15/21 12/24/23 History tamsulosin 0.4 mg capsule See Rx Instructions .Route 09/22/23 12/24/23 Rx .COMPLEX #90 caps coenzyme Q10 200 mg capsule 200 mg PO DAILY 10/07/23 12/24/23 History gabapentin 300 mg capsule 300 mg PO DAILY 10/07/23 12/24/23 History diclofenac sodium 75 mg 75 mg PO BID #60 tabs 12/02/23 12/24/23 Rx tablet,delayed release acetaminophen 500 mg tablet 1,000 mg PO TID PRN jayashree 7 days #42 12/14/23 12/24/23 Rx tabs methocarbamol 750 mg tablet 1,500 mg PO TID #30 tabs 12/14/23 12/24/23 Rx hydroxyzine HCl 25 mg tablet 25 mg PO TID PRN itching #15 tabs 12/16/23 12/24/23 Rx tramadol 50 mg tablet 50 mg PO Q6H PRN pain #20 tabs 12/21/23 12/24/23 Rx pantoprazole 40 mg tablet,delayed See Rx Instructions .Route 12/23/23 12/24/23 Rx release .COMPLEX #90 tabs prednisone 10 mg tablet 10 mg PO BID #20 tabs 12/23/23 12/24/23 Rx prednisone 10 mg tablet 20 mg PO BID #20 tabs 12/27/23 Rx Patient hx anesthesia problems: none Family hx anesthesia problems: none Results Review: All pre-operative results and documents have been reviewed as part of the pre-operative evaluation. [facility] Past Medical History Medical History Anxiety Asthma BPH (benign prostatic hyperplasia) Chronic pain GERD (gastroesophageal reflux disease) HTN (hypertension) Hypercholesterolemia Osteoarthritis Spinal stenosis Surgical History Surgical History H/O uvulectomy History of knee replacement Hx of appendectomy Hx of tonsillectomy Family History Family History Mother Hypertension Acute myocardial infarction Manic depression Father Hypertension Cerebrovascular accident Carcinoma of colon Social History Social History Years smoked: 7 Smoking status: Never smoker Second hand tobacco smoke exposure: No Smoking end date: 03/22/65 Alcohol intake: never Substance use: never Substance use type: does not use Do You Feel Safe in your Home?: Yes Lack of Transportation: No Lack of Food: Never True Current Housing: I Have Housing Concerned About Future Housing: No Difficulty Paying Gas/Electric Bills: No Difficulty Paying for Meds: YES Currently Unemployed: No Education: High School Diploma/GED Difficulty w/ Childcare or Family Care: No Living arrangements: alone Occupation/Education: retired 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
--- NOTE | 2024-01-10 11:06 | PM.HPGS ---
History of Present Illness History of Present Illness Consent: Risks, benefits, and alternatives have been discussed and questions answered. Patient agrees to proceed with procedure. Chief complaint: GERD Narrative: Terry Jones is a 83 year old male with gerd taking medication for over 30 years but recently more symptomatic, switched to pantoprazole that is helping better but no recent EGD. Review of Systems Review of Systems: All systems reviewed & are unremarkable except as noted in HPI and below PMFSH Past Medical History Medical History Anxiety Asthma BPH (benign prostatic hyperplasia) Chronic pain GERD (gastroesophageal reflux disease) HTN (hypertension) Hypercholesterolemia Osteoarthritis Spinal stenosis Surgical History Surgical History H/O uvulectomy History of knee replacement Hx of appendectomy Hx of tonsillectomy Family History Family History Mother Hypertension Acute myocardial infarction Manic depression Father Hypertension Cerebrovascular accident Carcinoma of colon Social History Social History Years smoked: 7 Smoking status: Never smoker Second hand tobacco smoke exposure: No Smoking end date: 03/22/65 Alcohol intake: never Substance use: never Substance use type: does not use Do You Feel Safe in your Home?: Yes Lack of Transportation: No Lack of Food: Never True Current Housing: I Have Housing Concerned About Future Housing: No Difficulty Paying Gas/Electric Bills: No Difficulty Paying for Meds: YES Currently Unemployed: No Education: High School Diploma/GED Difficulty w/ Childcare or Family Care: No Living arrangements: alone Occupation/Education: retired 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[employer] Gender identity (if verbalized by the patient): Male Spiritual care concerns: No Meds Home Medications and Allergies Home Medications Medication Instructions Recorded Confirmed Type amlodipine 5 mg tablet 5 mg PO DAILY 04/15/21 12/24/23 History lorazepam 1 mg tablet 3 mg PO DAILY 04/15/21 12/24/23 History multivitamin 1 tablet PO DAILY 04/15/21 12/24/23 History simvastatin 40 mg tablet 40 mg PO DAILY 04/15/21 12/24/23 History tamsulosin 0.4 mg capsule See Rx Instructions .Route 09/22/23 12/24/23 Rx .COMPLEX #90 caps coenzyme Q10 200 mg capsule 200 mg PO DAILY 10/07/23 12/24/23 History gabapentin 300 mg capsule 300 mg PO DAILY 10/07/23 12/24/23 History diclofenac sodium 75 mg 75 mg PO BID #60 tabs 12/02/23 12/24/23 Rx tablet,delayed release acetaminophen 500 mg tablet 1,000 mg PO TID PRN jayashree 7 days #42 12/14/23 12/24/23 Rx tabs methocarbamol 750 mg tablet 1,500 mg PO TID #30 tabs 12/14/23 12/24/23 Rx hydroxyzine HCl 25 mg tablet 25 mg PO TID PRN itching #15 tabs 12/16/23 12/24/23 Rx tramadol 50 mg tablet 50 mg PO Q6H PRN pain #20 tabs 12/21/23 12/24/23 Rx pantoprazole 40 mg tablet,delayed See Rx Instructions .Route 12/23/23 12/24/23 Rx release .COMPLEX #90 tabs prednisone 10 mg tablet 10 mg PO BID #20 tabs 12/23/23 12/24/23 Rx prednisone 10 mg tablet 20 mg PO BID #20 tabs 12/27/23 Rx Allergies Allergy/AdvReac Type Severity Reaction Status Date / Time hydrocodone Allergy Mild Itching Verified 12/24/23 15:09 Penicillins Allergy Unknown unknown Verified 12/24/23 15:09 Sulfa (Sulfonamide Allergy Rash Verified 12/24/23 15:09 Antibiotics) Exam Const: General: comfortable and no acute distress HENMT: Face/Nose/Sinus: Normal nares present Eyes: General: appearance normal, both eyes and all related structures Neck: Neck: no JVD Resp: Auscultation: clear to auscultation bilaterally Cardio: Rate: regular rate Rhythm: regular rhythm GI: Inspection:
[2024-01-10] MEDS: LACTATED RINGERS 1,000 ML 150 ML IV CONT (11:09)
[2024-01-10 11:13] VITALS: BP 144/86; PULSE 90; RESP 16; TEMP 36; O2SAT 99; BMI 22.4
[2024-01-10] MEDS: BENZOCAINE (*SP) 60 ML SPRAY CAN (HURRICAINE) 1 SPRAY MUCOUS MEM (11:15)
[2024-01-10 11:26] VITALS: BP 106/69; PULSE 73; RESP 24; O2SAT 99
[2024-01-10 11:36] VITALS: BP 137/82; PULSE 67; RESP 20; O2SAT 100
[2024-01-10 11:46] VITALS: BP 134/82; PULSE 71; RESP 18; O2SAT 100
== END 2024-01-10 12:00 | disposition home or self-care (01) ==
PROVIDERS: PCP Internal Medicine; Visit Provider Internal Medicine Gastroenterology
PROC: 0DJ08ZZ Inspection of Upper Intestinal Tract, Via Natural or Artificial Opening Endoscopic (ICD-10-PCS; CPT 43235; principal; 2024-01-10 12:30)
DX: K21.00 Gastro-esophageal reflux disease with esophagitis, without bleeding (principal); K29.50 Unspecified chronic gastritis without bleeding; K44.9 Diaphragmatic hernia without obstruction or gangrene; G89.29 Other chronic pain; I10 Essential (primary) hypertension; E78.00 Pure hypercholesterolemia, unspecified; N40.0 Benign prostatic hyperplasia without lower urinary tract symptoms; F41.9 Anxiety disorder, unspecified; J45.909 Unspecified asthma, uncomplicated; M48.00 Spinal stenosis, site unspecified; Z79.891 Long term (current) use of opiate analgesic; Z79.52 Long term (current) use of systemic steroids; Z98.890 Other specified postprocedural states; Z80.0 Family history of malignant neoplasm of digestive organs; Z82.49 Family history of ischemic heart disease and other diseases of the circulatory system
CPT/HCPCS: 43239; 88305; J2003; J2704; J7120

== ENCOUNTER 2024-02-09 13:40 | Outpatient (CLI) | payer MEDICARE, SELFPAY ==
--- NOTE | ~2024-02-09 | XR_ITS ---
CHEST RADIOGRAPH, PA AND LATERAL CLINICAL HISTORY: dyspnea . COMPARISON: 12/17/2020 TECHNIQUE: PA and lateral views of the chest. FINDINGS The cardiomediastinal silhouette is unremarkable. Stable nodularity within the left hemithorax, likely calcified granulomas. The remainder of the lungs are clear. Visualized osseous structures and soft tissues are unremarkable. IMPRESSION: No focal infiltrate or effusion. Reviewed, dictated and finalized at location A. 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
== END 2024-02-09 13:41 | disposition home or self-care (01) ==
LOC: ANHIMG 13:46
PROVIDERS: PCP Internal Medicine; Visit Provider Internal Medicine
DX: R06.00 Dyspnea, unspecified (principal)
CPT/HCPCS: 71046

== ENCOUNTER 2024-07-10 08:25 | Outpatient (CLI) | payer MEDICARE, SELFPAY ==
--- NOTE | ~2024-07-10 | XR_ITS ---
EXAMINATION: XR UGIAC w small bowel DATE: 07/10/2024 11:10 INDICATION: Gastroesophageal reflux disease without esophagitis. TECHNIQUE: The patient drank thick barium, gas-producing crystals, and thin barium. Conventional supi ne abdomen radiographs and fluoroscopic spot radiographs of the esophagus, stomach, and proximal smal l bowel were obtained. Additional overhead radiographs were obtained during the transit through the s mall bowel. Spot fluoroscopic images of the small bowel were obtained upon contrast reaching the cec um. Fluoroscopy exposure time was 2.4 minutes. A total of 7 overhead radiographs 801 fluoroscopic sam ges were recorded. Total DAP was 66.494 mGycm^2 COMPARISON: None. FINDINGS: Motor Route Carrier radiograph demonstrates moderate amount of scattered colonic stool. Mild lumbar dextrocurvature with severe spondylosis. The esophagus is normal without mass or stricture. Esophageal motility is n ormal. Moderate-sized sliding-type hiatal hernia with gastroesophageal junction possibly 7 cm above l evel of the diaphragm. There was no gastroesophageal reflux with provocative maneuvers. The stomach i s otherwise normal. Transit time from the stomach to proximal colon was approximately 1.5 hours. There is normal caliber and mucosal fold pattern throughout the small bowel. Terminal ileum is normal. No tethering or abno rmal mass effect observed upon the small bowel with real-time fluoroscopy. IMPRESSION: 1. Moderate-sized sliding-type hiatal hernia without gastroesophageal reflux with provocative maneuve rs. 2. Normal small bowel follow-through with transit time to the colon of 1.5 hours. Reviewed, dictated and finalized at location A. IMPRESSION: 1. Moderate-sized sliding-type hiatal hernia without gastroesophageal reflux wi th provocative maneuvers. 2. Normal small bowel follow-through with transit time to the colon of 1.5 hour s.
--- OUTSIDE RECORDS SUMMARY | 2024-07-10 09:00 | XMS_ITS ---
Author Organization [facility], Address [address] [facility] [address] [place] [address] Care Team Providers Care Custom Seamstress Name Role Phone Yordy Correia MD Primary Care Provider Alex Rocha [phone] REASON FOR VISIT call back Encounters Encounter Location Date Provider Diagnosis [facility] [address] [facility] [address] [place] [address] 02/04/2024 Alex Buck PLAN OF TREATMENT No Information
--- OUTSIDE RECORDS SUMMARY | 2024-07-10 09:01 | XMS_ITS | Patient Health Record ---
Author Organization [facility] Address [address] [address] Care Team Providers Care German Instructor Name Role Phone Yordy Correia MD Primary Care Provider Alex Rocha Unavailable [phone] ALLERGIES Allergen (clinical drug ingredient) Drug/Non Drug Allergy documented on EMR Reaction Allergy Type Onset Date Status amoxicillin Amoxicillin rash Drug Allergy Act zain penicillamine Penicillamine rash Drug Allergy Active RESULTS Component Value Reference Range Notes MRI : Lumbar spine with and without Contrast Reviewed date:01/31/2024 03:04:32 PM Interpretation:medicare/aetna Performing Lab: Notes/Report: medicare/aetna X ray : Lumbar spine 5 views , AP, Lateral, Spot, Flexion and Extension Reviewed date:12/30/2023 01:34:49 PM Interpretation:1210 Performing Lab: Notes/Report: 1210 Ultrasound : Arterial Dopple r Study, Lower extremities, Bilateral with Exercise Reviewed date:05/09/2024 10:19:43 AM Interpretation:medicare/aetna Performing Lab: Notes/Report: medicare/aetna REASON FOR REFERRAL Reason DIAGNOSES: back pain , DDD, HNP, radiculopathy, suspected PVD 3 times per week for 3 weeks eval and treat, exercise, modalities per therapist's discretion; HEP Referral Organization [facility] Referring Provider First Name Alex Referring Provider Last Name Heber Referring Provider Speciality Orthopedic Surgery Referred Provider Specialty Physical The rapy Referral Priority Routine MEDICATIONS Medication SIG (Take, Route, Frequency, Duration) Notes Start Date End Date Status traMADol HCl 50 MG 1 tablet as needed Orally every 4-6 hours for 7 days 01/27/2024 Not-Taking Align Active Aleve Not-Taking Pantoprazole Sodium Active Omeprazole Not-Takin g Benadryl Active Gabapentin Active Tylenol Not-Taking Magnesium Not-Taking Tamsulosin HCl Activ e amLODIPine Besylate Active CoQ10 Active Ibuprofen 800 MG TAKE 1 TABLET BY MOUTH THREE TIMES A DAY WITH FOOD OR MILK NEEDED FOR 30 DAYS for 30 LAST FILL FROM US. OTC OR PCP TO REFILL Not-Taking Multivitamin Active diazePAM Active Lorazepam Active Simvastatin Active PROBLEMS Problem Type ICD Code Onset Dates Problem Status W/U Status Risk SNOMED Code Notes Problem Sciatica (M54.30) Active confirmed Scia channing (14705134) Problem HNP (herniated nucleus pulposus), lumbar (M51.26) Active confirmed Displacement of lumbar intervertebral disc without myelopathy (95237773) Problem Sciatica, right side (M54.31) Active confirmed Right side sci atica (666490253346055) Problem Degenerative spondylolisthesis (M43.10) Active confirmed Degenerative spondylolisthesis (9369796) Problem DDD (degenerative disc disease), lumbar (M51.36) Active confirmed Degenerative disc disease (50881534) Problem Scoliosis (M41.9) Active confirmed Scol iosis (765406430) 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 Lumbosacral spondylosis without myelopathy (04991823) Problem Lumbosacral spondylosis (M47.817) Active confirmed Lumbosacral spondylosis (972016338) Problem Acute bilateral low back pain with right-sided sciatica (M54.41) Active confirmed Sciatica (98722550 ) Problem PVD (peripheral vascular disease) (I73.9) Active confirmed Peripheral vasc ular disease (293517453) VITAL SIGNS Height 69 in 03/06/2024 Weight 160 lbs 03/06/2024 BMI 23.63 kg/m2 03/06/2024 PROCEDURES Procedure Date Ordered Date Performed Result Body Sit e Lumbar Transforaminal Epidural Steroid Injection 01/27/2024 02/01/2024 medicare/aetn a services supplement Lumbar Transforaminal Epidural Steroid Injection 01/03/2024 01/03/2024 medicare/supplement Encounters Encounter Location Date Provider Diagnosis [facility] [address] [facility] [address] [place] [address] 12/17/2023 Alex Buck [facility], [address] [address] 12/30/2023 Alex Buck DDD (degenerative di sc disease), lumbar M51.36 ; Other low back pain M54.59 ; Lumbar contusion S30.0XXA ; Scoliosis M41.9 ; 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 and Lumbar radicular pain M54.16 [facility], [address] [address] 01/27/2024 Alex Buck Lumbar radiculopathy M54.16 ; HNP (herniated nucleus pulposus), lumbar M51.26 ; Other low back pain M54.59 ; DDD (degenerative disc disease), lumbar M51.36 ; Scoliosis M41.9 and 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 [facility], [address] [address] 03/06/2024 Alex Buck HNP (herniated nucle us pulposus), lumbar M51.26 ; Lumbar radiculopathy M54.16 ; Disc Degeneration, Lumbar Region with Leg Pain M51.361 ; Scoliosis M41.9 ; 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 and Knee pain, right M25.561 [facility], [address] [address] 01/12/2024 Alex Buck [facility], [address] [address] 02/04/2024 Alex Buck [facility] [address] [place] [id number] 01/03/2024 Alex Buck HNP (herniated nucle us pulposus), lumbar M51.26 ; 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 ; Other low back pain M54.59 ; Lumbar radicular pain M54.16 and Scoliosis M41.9 ASSESSMENTS Encounter Date Diagnosis Assessment Notes Treatment Notes Treatment Clinical Notes 12/30/2023 DDD (degenerative disc disease), lumbar (ICD-10 - M51.36) 01/27/2024 Lumbar radiculopathy (ICD-10 - M54.16) 03/06/2024 HNP (herniated nucleus pulposus), lumbar (ICD-10 - M51.26) 01/03/2024 HNP (herniated nucleus pulposus), lumbar (ICD-10 - M51.26) 12/30/2023 Other low back pain (ICD-10 - M54.59) 01/27/2024 HNP (herniated nucleus pulposus), lumbar (ICD-10 - M51.26) 03/06/2024 Lumbar radiculopathy (ICD-10 - M54.16) 01/03/2024 Facet degeneration o f lumbar region (ICD-10 - M47.816) 12/30/2023 Lumbar contusion (ICD-10 - S30.0XXA) 01/27/2024 Other low back pain (ICD-10 - M54.59) 03/06/2024 Disc Degeneration, Lumbar Region with Leg Pain (ICD-10 - M51.361) 01/03/2024 Other low back pain (ICD-10 - M54.59) 12/30/2023 Scoliosis (ICD-10 - M41.9) 01/27/2024 DDD (degenerative disc disease), lumbar (ICD-10 - M51.36) 03/06/2024 Scoliosis (ICD-10 - M41.9) 01/03/2024 Lumbar radicular jayashree n (ICD-10 - M54.16) 12/30/2023 Facet degeneration o f lumbar region (ICD-10 - M47.816) 01/27/2024 Scoliosis (ICD-10 - M41.9) 03/06/2024 Facet degeneration o f lumbar region (ICD-10 - M47.816) 01/03/2024 Scoliosis (ICD-10 - M41.9) 12/30/2023 Lumbar radicular jayashree n (ICD-10 - M54.16) 01/27/2024 Facet degeneration o f lumbar region (ICD-10 - M47.816) 03/06/2024 Knee pain, right (ICD-10 - M25.561) PLAN OF TREATMENT Pending Test Test Name Order Date CBC With Differential/Platelet PT AND PTT 12/13/2020 Chem-Comprehensive 12/13/2020 Insurance Providers Payer Name Payer Address Payer Phone Subscriber Number Group Number Insured Name Patient Relationship to Insured Coverage Start Date Coverage End Date Medicare [place] [address] [address] [place] [address] [id number] Terry Jones Self - [facility] [address] [address] [place] [address] [id number] Terry Jones Self - patient is the insured MEDICAL (GENERAL) HISTORY Medical History History ICD Code HBP Skin CA Arthritis in knees & shoulders Back pain Disc degeneration Facet DJD Herniated disc in neck/back Kidney stones BPH (urinates 2-3 times a night) IBS Anxiety Denies being hospitalized for psychiatri c condition Denies h/o drug/chemical dependency Surgical History Surgery Date(Month/Year) Low back 1979, 2016, 2020 L2-S1 LDL 01/20/2021 Tonsillectomy Left arm Left TKR Double hernia
--- OUTSIDE RECORDS SUMMARY | 2024-07-10 09:01 | XMS_ITS | Clinical Summary ---
Author Organization [facility] Address [address] [place] [address] Phone Care Team Providers Care Enterostomal Nurse Name Role Phone Yordy Correia MD Primary Care Provider [phone] Active Problems Problem Noted Date Diagnosed Date Chronic pain syndrome 07/02/2017 Somatic symptom disorder, pe rsistent, severe, with predominant pain 07/02/2017 Social History Tobacco Use Types Packs/Day Years Used Date Smoking Tobacco: Never Assessed Sex and Gender Information Value Date Recorded Sex Assigned at Not on file Legal Sex Male 10:22 PM CDT Gender Identity Not on file Sexual Orientation Not on file Plan of Treatment Health Maintenance Due Date Last Done Comments Hepatitis C Virus (HCV) Screening 1940 TdaP Immunization 1940 Zoster Immunization (2 of 3) 09/28/2013 08/03/2013 Pneumococcal Immunization (50+ years) (2 of 2 - PPSV23) 03/05/2015 03/05/2014 Respiratory Syncytial Virus (RSV) Immunization (Adult) (1 - 1-dose 75+ series) 01/27/2016 Influenza Immunization (#1) 11/21/202311/21, 12/19/2013 SARS-COV-2 Immunization ( season) 2023 05/24/2020 Pneumococcal Immunization Combined Discontinued 03/05/2014 Hepatitis B Immunization Aged Out No longer eligible based on patient's age to complete this topic Meningococcal Immunization (ACWY) Aged Out No longer eligible based on patient's age to complete this topic Rotavirus Immunization Aged Out No lo nger eligible based on patient's age to complete this topic Insurance MEDICARE [facility] Care Teams Enterostomal Nurse Relationship Specialty Start Date End Date Yordy Correia MD [address] [address] PCP - General Internal Medicine 06/30/17
--- OUTSIDE RECORDS SUMMARY | 2024-07-10 09:01 | XMS_ITS | Referral Summary ---
Author Organization [facility] Address [address] [address] Care Team Providers Care Air Conditioning Installer Supervisor Name Role Phone Yordy Correia MD Primary Care Provider Abena Sandhu RN Unavailable Unavailab le Allergies Active Allergy Reactions Criticality Noted Date Comments Amoxicillin Rash Medium 01/30/2019 Penicillins Other (See comments),Unknown Low Reaction: UNKNOWN, Reaction: UNKNOWN, Medications simvastatin (ZOCOR) 40 mg tablet Take 40 mg by mouth nightly. Active omeprazole (PriLOSEC) 20 mg capsule Take 20 mg by mouth daily. Active nortriptyline (PAMELOR) 10 mg capsule Take 10 mg by mouth nightly. Active sildenafil (VIAGRA) 50 mg tablet TAKE ONE TABLET BY MOUTH AN HOUR BEFORE SEXUAL ENCOUNTER 3 9 Active tamsulosin (FLOMAX) 0.4 mg extended release capsule Take 0.4 mg by mouth nightly 12 9 Active methocarbamol (ROBAXIN) 500 mg tablet Take 1 tablet (500 mg total) by mouth 3 (three) times a day as needed for muscle spasms 60 tablet 1 9 Active Additional Information Patient not taking.Reported on 10/02/2021 amLODIPine (NORVASC) 5 mg tablet Take 5 mg by mouth daily 3 9 Active LORazepam (ATIVAN) 2 mg tablet Take 2 mg by mouth 3 (three) times a day Active Active Problems Problem Noted Date Diagnosed Date Shoulder pain, left 12/04/2021 Assessment & Plan (12/04/2021 11:49 AM CDT): Mr. Jones has a primary problem of shoulder pain on the left with decreased range of motion of his left shoulder and inability to put his arm behind his back. He also has decreased external rotation of his left shoulder and limited abduction of his left shoulder. We will refer him to physiatry for formal evaluation of this. Arm pain 12/04/2021 Assessment & Plan (12/04/2021 11:51 AM CDT): Mr. Jones has arm pain, left much greater than right. 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 His over welling issue seems to be left shoulder pathology. I would recommend that this be addressed prior to consideration of any cervical surgery. We will see him back for re-evaluation after he has had his shoulder formally evaluated by physiatry. 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 Gender Identity Not on file Sexual Orientation Not on file Last Filed Vital Signs Vital Sign Reading Time Taken Comments Blood Pressure 132/72 10/02/2021 1:52 PM CDT Pulse 90 10/02/2021 1:52 PM CDT Temperature 36.6 C (97.8 F) 02/21/2019 10:42 AM AIRCRAFT ENGINE MECHANIC SUPERVISOR Respiratory Rate 14 10/02/2021 1:52 PM CDT Oxygen Saturation 99% 02/21/2019 11:55 AM AIRCRAFT ENGINE MECHANIC SUPERVISOR Inhaled Oxygen Concentration - - Weight 74.7 kg (164 lb 9.6 oz) 10/02/2021 1:52 P M CDT Height 175.3 cm (5' 9 ) 10/02/2021 1:52 PM CDT Body Mass Index 24.31 10/02/2021 1:52 PM CDT Plan of Treatment Not on file Goals Goal Patient Goal Type Associated Problems Recent Progress Patient-Stated? Author CCM Chronic Pain Care Plan Chronic Care Management No change(02/21 10:43 AM AIRCRAFT ENGINE MECHANIC SUPERVISOR) No Abena Sandhu RN Note: Problem: Chronic Pain Goals: 1. Minimize further functional decline 2. Maximize quality of life 3. Control pain Strategies: - Activity/exercise program recommendation - Conservative stepwise pain medicine strategy with multi-disciplinary approach - Recommend healthy lifestyle strategies and compensatory methods as needed Medical Devices Implanted Type Area Coat Hanger Shaper Machine Operator Device Identifier Shelf Expiration Date Model / Serial / Lot Patella Patella Knee Kit 70cm Lead - [id number] - [id number] Implanted:Qty: 1 on 08/27/2017 by Lacie Yanes MD at [facility] N/A: Epidural Space Nevro Cathy 04/19/2020 [id number] / [id number] / Kit 70cm Lead - [id number] - [id number] Implanted:Qty: 1 on 08/27/2017 by Lacie Yanes MD at [facility] N/A: Epidural Space Nevro Cathy 04/19/2020 [id number] / [id number] / Kit Ipg - [id number] - [id number] Implanted:Qty: 1 on 08/27/2017 by Lacie Yanes MD at [facility] N/A: Epidural Space Nevro Cathy 04/30/2019 [id number] / [id number] / Insurance MEDICARE [employer] SENIOR SUPPLEMENT [employer] Address: [facility] [address] [place] [address] MEDICARE COMMERCIAL GENERIC Advance Directives For more information, please contact: [phone] Documents on File Type Date Recorded Patient Custodial Aide Expl anation ADVANCE DIRECTIVE 08/27/2017 12:02 PM * Full Code (Latest Code Status on File) Date Activated Date Inactivated Comments 08/27/2017 4:59 PM 08/27/2017 7:16 PM Care Teams Air Conditioning Installer Supervisor Relationship Specialty Start Date End Date Yordy Correia MD [address] [facility] [address] [place] [address] PCP - General Internal Medicine 07/22/18 Abena Sandhu, RN Registered Nurse 01/30/19
--- OUTSIDE RECORDS SUMMARY | 2024-07-10 09:01 | XMS_ITS | Encounter Summary ---
Author Organization [facility] Address [address] [place] [address] Care Team Providers Care Full Charge Bookkeeper Name Role Phone Yordy Correia MD Primary Care Provider [phone] Encounter Details Date Type Department Care Team (Late st Contact Info) Description 09/21/2019 Lab Requisition [facility] [address] [place] [id number] Biju Coulter MD [address] [address] Social History Tobacco Use Types Packs/Day Years Used Date Smoking Tobacco: Never Assessed Sex and Gender Information Value Date Recorded Sex Assigned at Not on file Legal Sex Male 6:30 AM 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 LOCATOR Gender Identity Not on file Sexual Orientation Not on file documented as of this encounter Plan of Treatment Upcoming Encounters Date Type Department Care Team (Latest Contact Info) Description 07/20/2024 1:00 PM CDT Appointment Infusion Services at [address] [place] [id number] 07/27/2024 1:00 PM CDT Appointment Infusion Services at [address] [place] [address] 08/03/2024 1:00 PM CDT Appointment Infusion Services at [address] [place] [address] 08/09/2024 9:54 AM CDT Hospital Encounter [facility] - Perioperative Surgery [address] [place] [address] [place] [address] [facility] [address] [place] [address] Surgery General 08/09/2024 9:54 AM CDT - 08/09/2024 12:12 PM CDT Surgery [facility] - Perioperative Surgery [address] [place] [address] [place] [address] [facility] [address] [place], [place] [id number] RIGHT TOTAL KNEE ARTHROPLASTY 08/09/2024 10:15 AM CDT Procedure visit [facility] [address] [facility] [address] [place] [id number] Scheduled Procedures Name Priority Associated Diagnoses Date/Ti me ARTHROPLASTY TOTAL KNEE 07/21 9:54 AM CDT documented as of this encounter Procedures Procedure Name Priority Date/Time Associated Diagnosis Comments DERMATOPATHOLOGY Routine 09/19/2019 12:0 0 AM CDT documented in this encounter Results * DERMATOPATHOLOGY (09/19/2019 12:00 AM CDT) Case Report Dermatopathology Report Case: [id number] Authorizing Provider: Biju Coulter MD Collected: 09/19/2019 12:00 AM Ordering Location: [facility] Received: 09/21/2019 10:59 AM Pathologist: Farida Ramirez MD Specimen: Skin, left hand 0 12:13 PM CDT DERMATOPATHOLOGY LABORATORY Final Diagnosis Specimen A. 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 Path # [id number]. 0 12:13 PM CDT DERMATOPATHOLOGY LABORATORY Gross Description Specimen A: Received is one container labeled with the patient's name and designated left hand. The specimen consists of a shave biopsy measuring [id number]. Jar 0. 0 12:13 PM CDT DERMATOPATHOLOGY LABORATORY Microscopic Description Specimen A. SKIN, left hand: Sections show an endo exophytic crateriform lesion with a keratotic plug, formed by confluent follicle-like structures with relatively large keratinocytes and neutrophilic abscesses. 0 12:13 PM CDT DERMATOPATHOLOGY LABORATORY Disclaimer An external and internal positive and negative controls are appropriate for the histochemical, immunohistochemical and immunofluorescence stain(s) in this case (if any), except where stated explicitly. The performance characteristics of the stain(s) cited in this report were developed and its performance characteristic determined by the Dermatopathology Laboratory at [facility], directed by Dr. Karin Ramirez. These tests need not be, and therefore are not, approved by the [place] Food and Drug Administration. The tests are used for clinical purposes. Billing Codes Specimen Charges Stain Charges 81601 1 0 12:13 PM CDT DERMATOPATHOLOGY LABORATORY Embedded Images 0 12:13 PM CDT DERMATOPATHOLOGY LABORATORY Pathology/Cytolog y TISSUE SPECIMEN FROM SKIN / Unknown 09/19/2019 09/21/2019 10:59 AM CDT us Biju Coulter MD LAB - PATHOLOGY/CYTOLOGY ORDER ANTWAN Final Result DERMATOPATHOLOGY LABORATORY [facility] - Department of Dermatology [facility]/[address] [phone] documented in this encounter Visit Diagnoses Not on filedocumented in this encounter Care Teams Full Charge Bookkeeper Relationship Specialty Start Date End Date Yordy Correia MD [address] [place] [address] [address] [place] [address] PCP - General 05/26/19 documented as of this encounter
--- OUTSIDE RECORDS SUMMARY | 2024-07-10 09:01 | XMS_ITS | Clinical Summary ---
Author Organization [facility] Address [address] [address] Care Team Providers Care Table Games Floor Supervisor Name Role Phone Yordy Correia MD [...] 08/01/2010 Gastroesophageal reflux disease 08/01/2010 Indigestion 08/01/2010 Surgical History Surgery Date Site/Laterality Comments REPLACEMENT TOTAL KNEE APPENDECTOMY HERNIA REPAIR TONSILLECTOMY BACK SURGERY 1969, 1974, 2020 KNEE SURGERY LITHOTRIPSY TOTAL KNEE ARTHROPLASTY SPINAL CORD STIMULATOR IMPLANT 08/20/2017 - 09/18/2017 nevro - had removed Medical History Medical History Date Comments Gastric reflux Hypertension Coronary artery disease Hyperlipidemia Anxiety Sleep apnea CPAP Arthritis Chronic pain disorder Low back pain Skin cancer Family History Medical History Relation Name Comments Cancer Father Stroke Father Anxiety disorder Mother Depression Mother Heart disease Mother Relation Name Status Comments Father Mother Social History Tobacco Use Types Packs/Day Years [...] on file Legal Sex Male 1:28 AM ADULT SCHOOL COUNSELOR Gender Identity Not on file Sexual Orientation Not on file Obstetrics History Last Filed Vital Signs Vital Sign Reading Time Taken Comments Blood Pressure 132/72 10/02/2021 1:52 PM CDT Pulse 90 10/02/2021 1:52 PM CDT Temperature 36.6 C (97.8 F) 02/21/2019 10:42 AM ADULT SCHOOL COUNSELOR Respiratory Rate 14 10/02/2021 1:52 PM CDT Oxygen Saturation 99% 02/21/2019 11:55 AM ADULT SCHOOL COUNSELOR Inhaled Oxygen Concentration - - Weight 74.7 kg (164 lb 9.6 oz) 10/02/2021 1:52 P M CDT Height 175.3 cm (5' 9 ) 10/02/2021 1:52 PM CDT Body Mass Index 24.31 10/02/2021 1:52 PM CDT Plan of Treatment Health Maintenance Due Date Last Done Comments Fall Risk Assessment 1941 DTaP/Tdap/Td Vaccine (1 - Tdap) 01/27/1952 Hepatitis B Screening 1959 Well Visit 65+ 2006 Zoster Vaccine (2 of 3) 09/28/2013 08/03/2013 Pneumococcal vaccine 65+ (2 of 2 - PPSV23) 04/30/2014 03/05/2014 Depression Screening 10/02/2022 10/02/2021 Influenza Vaccine (Season Ended) 2024 12/30/2020, 11/09/2018, 12/25/2017, Additional history exists Goals Goal Patient Goal Type Associated Problems Recent Progress Patient-Stated? Author CCM Chronic Pain Care Plan Chronic Care Management No change(02/21 10:43 AM ADULT SCHOOL COUNSELOR) No Abena Sandhu RN Note: Problem: Chronic Pain Goals: 1. Minimize further functional decline 2. Maximize quality of life 3. Control pain Strategies: - Activity/exercise program recommendation - Conservative stepwise pain medicine strategy with multi-disciplinary approach - Recommend healthy lifestyle strategies and compensatory methods as needed Medical Devices Implanted Type Area Lead Presser Device Identifier Shelf Expiration Date Model / Serial / Lot Patella Patella Knee Kit 70cm Lead - [id number] - [id number] Implanted:Qty: 1 on 08/27/2017 by Lacie Yanes MD at [facility] N/A: Epidural Space Nevro Cathy 04/19/2020 [id number] / [id number] / Kit 70cm Lead - [id number] - [id number] Implanted:Qty: 1 on 08/27/2017 by Lacie Yanes MD at [facility] N/A: Epidural Space Nevro Cathy 04/19/2020 [id number] / [id number] / Kit g - [id number] - [id number] Implanted:Qty: 1 on 08/27/2017 by Lacie Yanes MD at [facility] N/A: Epidural Space Nevro Cathy 04/30/2019 [id number] / [id number] / Insurance [facility] MEDICARE COMMERCIAL GENERIC Advance Directives For more information, please contact: [phone] Documents on File Type Date Recorded Patient Real Estate Rental Agent Expl anation ADVANCE DIRECTIVE 08/27/2017 12:02 PM * Full Code (Latest Code Status on File) Date Activated Date Inactivated Comments 08/27/2017 4:59 PM 08/27/2017 7:16 PM Care Teams Table Games Floor Supervisor Relationship Specialty Start Date End Date Yordy Correia MD [address] [facility] [address] [place] [address] PCP - General Internal Medicine 07/22/18 Abena Sandhu, RN Registered Nurse 01/30/19
--- OUTSIDE RECORDS SUMMARY | 2024-07-10 09:01 | XMS_ITS | Clinical Summary ---
Author Organization [facility] [place] Address [address] [place] [address] Care Team Providers Care Coating And Embossing Unit Operator Name Role Phone Yordy Correia MD Primary Care Provider [phone] Source Comments [facility],non-owned Affiliates and Associated Physician Practices is amultiple site organization consisting of ambulatory clinics and hospital sitesin [place], [place] and [place]. This disclosure is being madepursuant to the Care Everywhere program and may not contain all informatio navailable regarding this patient. Last updated 17.[facility] [place] Allergies Active Allergy Reactions Criticality Noted Date Comments Penicillins Itching,Unknown,Rash Medium 01/30/2019 itching, rash Reaction: UNKNOWN, Reaction: UNKNOWN, Sulfa Drugs Unknown 04/18/2024 Medications * Be aware that medications may not be up to date on this document. Alwaysverify current medications with the patient. amLODIPine (Norvasc) 5 MG tablet Take 1 (one) tablet by mouth once daily 5 Active Acetaminophen Extra Strength 500 MG TABS 1000 MG ORALLY THREE TIMES A DAY NEEDED FOR RUBY FOR 7 DAYS 4 Active LORazepam (Ativan) 1 MG tablet Take 1 (one) tablet by mouth 3 times daily as needed 5 Active gabapentin (Neurontin) 300 MG capsule Take 2 (two) capsules by mouth 2 times daily 5 Active pantoprazole EC (Protonix) 40 MG tablet Take 1 (one) tablet by mouth every 12 hours 4 Active simvastatin (Zocor) 40 MG tablet Take 1 (one) tablet by mouth at bedtime Active tamsulosin (Flomax) 0.4 MG capsule TAKE 1 CAPSULE BY MOUTH EVERYDAY AT BEDTIME 4 Active multivitamins plus minerals chew tablet Take 1 (one) tablet by mouth daily with food Active Ubiquinol (Qunol CoQ10/Ubiquinol /Sander) 100 MG Take 200 mg by mouth Active Other Nutrafol for hair Active MAGNESIUM PO Take 250 mg by mouth Active omeprazole (PriLOSEC) 20 MG capsule Take 1 (one) capsule by mouth once daily 07/07/19 25 Discontinu ed(List Clean-Up) Probiotic Product (ALIGN PO) 07/07/19 25 Discontinu ed(List Clean-Up) Active Problems Problem Noted Date Diagnosed Date Iron deficiency anemia 07/06/2024 Primary osteoarthritis of right knee 06/16/2024 Encounters Date Type Department Care Team Description 07/06/2024 2:00 PM CDT Office Visit [facility] [address] [place] [address] [address] [place] [address] Frances Richmond, CHISEL MORTISER OPERATOR-PHYSICAL SCIENCE TEACHER Iron deficiency anemia, unspecified iron deficiency anemia type (Primary Dx) 06/29/2024 12:24 PM CDT - 06/29/2024 11:59 PM CDT Hospital Encounter [facility] [address] [place] [address] Gokul Estrada MD Discharge Disposition: Home or Self Care 06/29/2024 Orders Only [facility] [address] [place], [place] [id number] Delaney Holden, CHISEL MORTISER OPERATOR-PHYSICAL SCIENCE TEACHER Anemia, unspecified type 06/29/2024 Travel 06/07/2024 Telephone [facility] [address] [place] [address], [facility] [address] [place] [address] Gokul Estrada MD Patient Requested Call (Terry called in to ask if he may reschedule sx for a later date since his grandchildren graduates in the month of July.) 06/06/2024 2:30 PM CDT Office Visit [facility] [address] [place] [address], [address] [place] [address] Gokul Estrada MD Primary osteoarthritis of right knee (Primary Dx) 04/18/2024 2:45 PM CUSTOMER CONTACT REPRESENTATIVE Ancillary Procedure [facility] - Radiology [address] [place] [phone] Gokul Estrada MD Right knee pain, unspecified chronicity 04/18/2024 2:40 PM CUSTOMER CONTACT REPRESENTATIVE Office Visit [facility] [address] [facility], [address] [address] Gokul Estrada MD Right knee pain, unspecified chronicity (Primary Dx); Primary osteoarthritis of right knee from Last 3 Months Social History Tobacco Use Types Packs/Day Years Used Date Smoking Tobacco: Never Smokeless Tobacco: Never Tobacco Cessation:Counseling Given: Not Answered Alcohol Use Standard Drinks/Week Comments Never 0 (1 standard drink = 0.6 oz pur e alcohol) PHQ-2 Answer Date Recorded Patient Health Questionnaire-2 Score 0 07/06/2024 Sex and Gender Information Value Date Recorded Sex Assigned at Not on file Legal Sex Male 6:30 AM CUSTOMER CONTACT REPRESENTATIVE Gender Identity Not on file Sexual Orientation Not on file Last Filed Vital Signs Vital Sign Reading Time Taken Comments Blood Pressure 128/76 06/29/2024 1:04 PM CDT Pulse 93 07/06/2024 2:25 PM CDT Temperature 36.8 C (98.3 F) 07/06/2024 2:25 PM CDT Respiratory Rate 18 07/06/2024 2:25 PM CDT Oxygen Saturation 98% 07/06/2024 2:25 PM CDT Inhaled Oxygen Concentration - - Weight 74.8 kg (165 lb) 06/29/2024 12:58 PM CDT Height 170.2 cm (5' 7 ) 07/06/2024 2:25 PM CDT Body Mass Index 25.84 06/29/2024 12:58 PM CDT Plan of Treatment Upcoming Encounters Date Type Department Care Team (Latest Contact Info) Description 07/20/2024 1:00 PM CDT Appointment Infusion Services at [address] [address] 07/27/2024 1:00 PM CDT Appointment Infusion Services at [address] [address] 08/03/2024 1:00 PM CDT Appointment Infusion Services at [address] [address] 08/09/2024 9:54 AM CDT Hospital Encounter [facility] - Perioperative Surgery [address] [place] [address] [place] [address] [place] [address] Surgery General 08/09/2024 9:54 AM CDT - 08/09/2024 12:12 PM CDT Surgery [facility] - Perioperative Surgery [address] [place] [address] [place] [address] [address] RIGHT TOTAL KNEE ARTHROPLASTY 08/09/2024 10:15 AM CDT Procedure visit [facility] [address] [place] [address], [address] [id number] Scheduled Procedures Name Priority Associated Diagnoses Date/Ti me ARTHROPLASTY TOTAL KNEE 07/21 9:54 AM CDT Health Maintenance Due Date Last Done Comments MEDICARE AWV 12 MONTHS 1941 DTAP/TDAP/TD VACCINES (1 - Tdap) 01/27/1960 PNEUMOCOCCAL VACCINE 50+ (1 of 1 - PCV) 1991 ZOSTER VACCINE (1 of 2) 1991 Respiratory Syncytial Virus (RSV) Vaccine Pt: or over 60 yrs (1 - 1-dose 75+ series) 01/27/2016 COVID-19 VACCINE ( season) 2023 05/20/2021, 05/24/2020 INFLUENZA VACCINE Completed 01/13/2024, , 11/13/2021, Additional history exists DEPRESSION SCREENING Completed 07/06/2024 HEPATITIS B VACCINE Aged Out No longe r eligible based on patient's age to complete this topic HIB VACCINE Aged Out No longer eligi ble based on patient's age to complete this topic HPV VACCINE Aged Out No longer eligi ble based on patient's age to complete this topic MENINGOCOCCAL (Group B) VACCINE SHARED DECISION-MAKING Aged Out No longer eligible based on patient's age to complete this topic MENINGOCOCCAL GROUPS A/C/Y/W VACCINE Aged Out No longer eligible based on patient's age to complete this topic Procedures Procedure Name Priority Date/Time Associated Diagnosis Comments EKG 12-LEAD STAT 06/29/2024 1:14 PM CDT Preop testing RETIC COUNT STAT 06/29/2024 12:41 PM CDT Preop testing IRON + TRANSFERRIN PANEL STAT 06/29/2024 12:41 PM CDT Preop testing FERRITIN STAT 06/29/2024 12:41 PM CDT Preop testing VITAMIN B12 FOLATE PANEL STAT 06/29/2024 12:41 PM CDT Preop testing COMPREHENSIVE METABOLIC PANEL STAT 06/29/2024 12:41 PM CDT Preop testing CBC W AUTO DIFFERENTIAL STAT 06/29/2024 12:41 PM CDT Preop testing XR KNEE RIGHT 3VW Routine 04/18/2024 2:4 7 PM CUSTOMER CONTACT REPRESENTATIVE Right knee pain, unspecified chronicity from Last 3 Months Results * EKG 12-LEAD (06/29/2024 1:14 PM CDT) Ventricular Rate 72 BPM [facility] Atrial Rate 72 BPM [facility] P-R Interval 152 ms [facility] QRS Duration ms 92 ms [facility] Q-T Interval ms 394 ms [facility] QTC Calculation (Bezet) 431 ms [facility] Calculated P [place] 83 degrees [facility] Calculated R [place] 19 degrees [facility] Calculated T [place] 55 degrees [facility] Interpretation EKG Sinus rhythm with Premature atrial complexes Otherwise normal ECG No previous ECGs available Confirmed by YASMIN MYRICK, NAVEED GATES ([id number]) on 06/29/2024 10:22:02 PM [facility] MUSE 06/29/2024 1:14 PM CDT 06/29/2024 10:22 PM CDT Billiemarcella Stein DO ECG ORDERABLES Edited Result - Final Performing Organization Address City/[facility]/ZIP Co de Phone Number [facility] * (ABNORMAL) RETIC COUNT (06/29/2024 12:41 PM CDT) Pathologist [facility] Reticulocyte Percent 1.77 0.50 - 2.40 % 06/29/2024 1:01 PM CDT [facility] Reticulocyte Absolute 0.0699 0.0200 - 0.1100 x10E6/uL 06/29/2024 1:01 PM CDT [facility] Ret-HE 28.8(L) 29.0 - 37.9 pg 06/29/2024 1:01 PM CDT [facility] Immature Reticulocyte Fraction 21.8(H) 1.8 - 15.2 % 06/29/2024 1:01 PM CDT [facility] Blood BLOOD SPECIMEN / Unknown Venipuncture / Unknown 06/29/2024 12:41 PM CDT 06/29/2024 12:54 PM CDT Delaney Holden CHISEL MORTISER OPERATOR-PHYSICAL SCIENCE TEACHER LAB - HEMATOLOGY OR DERABLES Final Result Performing Organization Address [facility] Co de Phone Number [facility] [address] [place] [phone] * (ABNORMAL) CBC W AUTO DIFFERENTIAL (06/29/2024 12:41 PM CDT) Pathologist [facility] WBC 7.9 4.0 - 10.7 x10E9/L 06/29/2024 12:54 PM CDT [facility] RBC Count 3.92(L) 4.30 - 5.80 x10E12/L 06/29/2024 12:54 PM CDT [facility] Hemoglobin 10.2(L) 13.3 - 17.5 g/dL 06/29/2024 12:54 PM CDT [facility] Hematocrit 31.5(L) 38.7 - 51.1 % 06/29/2024 12:54 PM CDT [facility] MCV 80.4 80.0 - 98.0 fL 06/29/2024 12:54 PM CDT [facility] MCH 26.0(L) 26.7 - 33.6 pg 06/29/2024 12:54 PM CDT [facility] MCHC 32.4 31.7 - 36.3 g/dL 06/29/2024 12:54 PM CDT [facility] RDW-CV 15.5(H) 11.3 - 14.8 % 06/29/2024 12:54 PM CDT [facility] Platelet Count 256 150 - 420 x10E9/L 06/29/2024 12:54 PM CDT [facility] MPV 10.3 7.8 - 11.4 fL 06/29/2024 12:54 PM CDT [facility] Neutrophil % 65.6 41.0 - 74.0 % 06/29/2024 12:54 PM CDT [facility] Lymphocyte % 19.3 17.0 - 47.0 % 06/29/2024 12:54 PM CDT [facility] Monocyte % 11.9(H) 3.0 - 11.0 % 06/29/2024 12:54 PM CDT [facility] Eosinophil % 2.2 0.0 - 7.0 % 06/29/2024 12:54 PM CDT [facility] Basophil % 0.9 0.0 - 1.6 % 06/29/2024 12:54 PM CDT [facility] Immature Granulocytes % 0.1 0.0 - 1.0 % 06/29/2024 12:54 PM CDT [facility] Neutrophil Absolute 5.18 1.60 - 7.50 x10E9/L 06/29/2024 12:54 PM CDT [facility] Lymphocyte Absolute 1.52 1.00 - 4.40 x10E9/L 06/29/2024 12:54 PM CDT [facility] Monocyte Absolute 0.94 0.15 - 1.00 x10E9/L 06/29/2024 12:54 PM CDT [facility] Eosinophil Absolute 0.17 0.00 - 0.60 x10E9/L 06/29/2024 12:54 PM CDT [facility] Basophil Absolute 0.07 0.00 - 0.13 x10E9/L 06/29/2024 12:54 PM CDT [facility] Blood BLOOD SPECIMEN / Unknown Venipuncture / Unknown 06/29/2024 12:41 PM CDT 06/29/2024 12:49 PM CDT Delaney Adina CHISEL MORTISER OPERATOR-PHYSICAL SCIENCE TEACHER LAB - HEMATOLOGY OR DERABLES Final Result [facility] [address] [place] [address] * (ABNORMAL) COMPREHENSIVE METABOLIC PANEL (06/29/2024 12:41 PM CDT) [facility] Glucose 96 70 - 99 mg/dL 06/29/2024 1:15 PM CDT [facility] Sodium 141 136 - 145 mmol/L 06/29/2024 1:15 PM CDT [facility] Potassium 4.7 3.5 - 5.1 mmol/L 06/29/2024 1:15 PM CDT [facility] Chloride 109(H) 98 - 107 mmol/L 06/29/2024 1:15 PM CDT [facility] CO2 23 22 - 29 mmol/L 06/29/2024 1:15 PM CDT [facility] Calcium 8.9 8.4 - 10.4 mg/dL 06/29/2024 1:15 PM CDT [facility] Anion Gap 9 6 - 16 mmol/L 06/29/2024 1:15 PM CDT [facility] BUN 22 7 - 26 mg/dL 06/29/2024 1:15 PM CDT [facility] Creatinine 0.96 0.72 - 1.25 mg/dL 06/29/2024 1:15 PM CDT [facility] Alkaline Phosphatase 95 40 - 150 U/L 06/29/2024 1:15 PM CDT [facility] ALT 27 6 - 57 U/L 06/29/2024 1:15 PM CDT [facility] AST 39 10 - 48 U/L 06/29/2024 1:15 PM CDT [facility] Protein Total 6.8 6.4 - 8.3 gm/dL 06/29/2024 1:15 PM CDT [facility] Albumin 3.8 3.4 - 5.0 gm/dL 06/29/2024 1:15 PM CDT [facility] Bilirubin Total 0.5 0.2 - 1.2 mg/dL 06/29/2024 1:15 PM CDT [facility] eGFR by CKD-EPI 78(L) >=90 mL/min/1.7 3 m2 06/29/2024 1:15 PM CDT [facility] Blood BLOOD SPECIMEN / Unknown Venipuncture / Unknown 06/29/2024 12:41 PM CDT 06/29/2024 12:49 PM CDT Delaney Holden [facility] LAB - CHEMISTRY ORD ERABLES Final Result Performing Organization Address City/[facility]/ZIP Co de Phone Number [facility] [address] [place] [phone] * VITAMIN B12 FOLATE PANEL (06/29/2024 12:41 PM CDT) Vitamin B12 794 213 - 816 pg/mL 06/29/2024 2:23 PM CDT [facility] Folate 16.5 7.0 - 31.4 ng/mL 06/29/2024 2:23 PM CDT [facility] Blood BLOOD SPECIMEN / Unknown Venipuncture / Unknown 06/29/2024 12:41 PM CDT 06/29/2024 12:54 PM CDT Delaney Holden [facility] LAB - CHEMISTRY ORD ERABLES Final Result Performing Organization Address City/[facility]/ZIP Co de Phone Number [facility] [id number] [place] [phone] * (ABNORMAL) IRON + TRANSFERRIN PANEL (06/29/2024 12:41 PM CDT) Iron 72 50 - 175 ug/dL 06/29/2024 1:14 PM CDT [facility] Transferrin 344 174 - 382 mg/dL 06/29/2024 1:14 PM CDT [facility] TIBC Calculated 430 240 - 450 ug/dL 06/29/2024 1:14 PM CDT [facility] Iron Saturation % 17(L) 20 - 50 % 06/29/2024 1:14 PM CDT [facility] Blood BLOOD SPECIMEN / Unknown Venipuncture / Unknown 06/29/2024 12:41 PM CDT 06/29/2024 12:49 PM CDT Delaney Holden [facility] LAB - CHEMISTRY ORD ERABLES Final Result Performing Organization Address [facility] Co de Phone Number [facility] [address] [place] [address] * (ABNORMAL) FERRITIN (06/29/2024 12:41 PM CDT) [facility] Ferritin 17(L) 22 - 275 ng/mL 06/29/2024 1:34 PM CDT [facility] Blood BLOOD SPECIMEN / Unknown Venipuncture / Unknown 06/29/2024 12:41 PM CDT 06/29/2024 12:49 PM CDT Delaney Holden [facility] LAB - CHEMISTRY ORD ERABLES Final Result Performing Organization Address [facility] Co de Phone Number [facility] [address] [place] [address] * XR Knee Right 3Vw (04/18/2024 2:47 PM CUSTOMER CONTACT REPRESENTATIVE) Narrative [facility] [address] - 04/18/2024 2:47 PM CUSTOMER CONTACT REPRESENTATIVE Please see progress note in Epic for results. Gokul Estrada MD DIAGNOSTIC IMAGING ORDERABLES Final Result Performing Organization Address [facility] Co de Phone Number [facility] [address] from Last 3 Months Insurance MEDICARE AETNA MEDICARE AETNA SELF PAY NO INSURANCE Member Subscriber Plan / Payer (Ef fective for All Dates) Name:Terry Jones Member ID:Not on file Relation to Subscriber:Not on file Name:TERRY JONES Subscriber ID:Not on file (Home) Address: [address] [place] [id number] Payer ID:Not on file Group ID:Not on file Type:Self Pay Address: [place], [place] Care Teams Coating And Embossing Unit Operator Relationship Specialty Start Date End Date Yordy Correia MD [address] [place] [address] PCP - General 05/26/19
--- OUTSIDE RECORDS SUMMARY | 2024-07-10 09:01 | XMS_ITS ---
Author Organization [facility] Address [address] [address] Care Team Providers Care Point Of Care Specialist Name Role Phone Yordy Correia MD Primary Care Provider Alex Rocha Unavailable [phone] ALLERGIES Allergen (clinical drug ingredient) Drug/Non Drug Allergy documented on EMR Reaction Allergy Type Onset Date Status amoxicillin Amoxicillin rash Drug Allergy Act zain penicillamine Penicillamine rash Drug Allergy Active RESULTS Component Value Reference Range Notes Ultrasound : Arterial Dopple r Study, Lower extremities, Bilateral with Exercise Reviewed date:05/09/2024 10:19:43 AM Interpretation:medicare/aetna Performing Lab: Notes/Report: medicare/aetna REASON FOR REFERRAL Reason DIAGNOSES: back pain , DDD, HNP, radiculopathy, suspected PVD 3 times per week for 3 weeks eval and treat, exercise, modalities per therapist's discretion; HEP Referral Organization [facility] Referring Provider First Name Alex Referring Provider Last Name Heber Referring Provider Speciality Orthopedic Surgery Referred Provider Specialty Physical The rapy Referral Priority Routine REASON FOR VISIT Mohan leg weakness, low back pain MEDICATIONS Medication SIG (Take, Route, Frequency, Duration) Notes Start Date End Date Status Tylenol Active Align Active Pantoprazole Sodium Active diazePAM Active Benadryl Active Aleve Not-Taking Omeprazole Not-Takin g Ibuprofen 800 MG TAKE 1 TABLET BY MOUTH THREE TIMES A DAY WITH FOOD OR MILK NEEDED FOR 30 DAYS for 30 LAST FILL FROM US. OTC OR PCP TO REFILL Not-Taking traMADol HCl 50 MG 1 tablet as needed Orally every 4-6 hours for 7 days 01/27/2024 Active Magnesium Not-Taking Simvastatin Active Gabapentin Not-Takin g Tamsulosin HCl Activ e amLODIPine Besylate Active Lorazepam Active CoQ10 Active Multivitamin Active PROBLEMS Problem Type ICD Code Onset Dates Problem Status W/U Status Risk SNOMED Code Notes Problem PVD (peripheral vascular disease) (I73.9) Active confirmed Peripheral vascular disease (906163823) VITAL SIGNS BMI 23.63 kg/m2 01/27/2024 Height 69 in 01/27/2024 Weight 160 lbs 01/27/2024 PROCEDURES Procedure Date Ordered Date Performed Result Body Sit e Lumbar Transforaminal Epidural Steroid Injection 01/27/2024 02/01/2024 medicare/aetn a services supplement Encounters Encounter Location Date Provider Diagnosis [facility] [address] [place] [address] 01/27/2024 Alex Buck Lumbar radiculopathy M54.16 ; HNP (herniated nucleus pulposus), lumbar M51.26 ; Other low back pain M54.59 ; DDD (degenerative disc disease), lumbar M51.36 ; Scoliosis M41.9 and 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 ASSESSMENTS Encounter Date Diagnosis Assessment Notes Treatment Notes Treatment Clinical Notes 01/27/2024 Lumbar radiculopathy (ICD-10 - M54.16) 01/27/2024 HNP (herniated nucleus pulposus), lumbar (ICD-10 - M51.26) 01/27/2024 Other low back pain (ICD-10 - M54.59) 01/27/2024 DDD (degenerative disc disease), lumbar (ICD-10 - M51.36) 01/27/2024 Scoliosis (ICD-10 - M41.9) 01/27/2024 Facet degeneration o f lumbar region (ICD-10 - M47.816) PLAN OF TREATMENT Medication Medication Name Sig Start Date Stop Date Notes traMADol HCl 50 MG 1 tablet as needed O rally every 4-6 hours for 7 days 01/27/2024 Referrals Referral Date Details DIAGNOSES: back pain , DDD, HNP, radiculopathy, suspected PVD 3 times per week for 3 weeks eval and treat, exercise, modalities per therapist's discretion; HEP Progress Notes * Examination Category Sub-Category Detail Notes General Examination GENERAL: Patient is a lert and cooperative. He moves about the room in a cautious fashion. He ambulates with a limp favoring the RLE NECK: Moderate kyphosis. C ervical ROM reduced in EXT. Spurling's test negative HEART: Regular rate and rhy thm LUNGS: Clear to auscultatio n in all nye ABDOMEN: No tenderness to pal pation, bowel sounds present all four quadrants NEUROLOGIC: UE neurologic exam r eveals symmetric DTR's, intact sensation, 5+/5+ motor strength. Hue's sign negative. LE neurologic exam reveals decreased sensation involving R. anterior thigh and R. posterior calf. R. EHL and anterior tibialis weakness at 4+/5+. DTR's symmetric. SLR testing negative SKIN: No evidence of skin rashes or dermal lesions MUSCULOSKELETAL: Thoracic exam reveal s no tenderness to palpation, no spasm. Mild kyphosis. Lumbar exam reveals tension, but no spasm. Back incision from L3 to S1, no erythema, no induration. Lumbar ROM reveals FF 95 degrees, EXT 25 degrees, SB 35 degrees. Lumbosacral exam reveals no tenderness to palpation involving SI region PSYCHIATRIC: Mood and affect appe ar normal HEENT: No masses, PERRLA, E OM intact, no nasal drainage, no lymphadenopathy JOINTS: Hip log roll testing negative. Hip ROM mildly diminished bilaterally HEMATOLOGIC: No evidence of exces sive bruising or bleeding Consultation Request Notes Referral Date Referring Provider Referred Provider Not es 01/27/2024 Alex Buck , DIAGNOSES: b ack pain, DDD, HNP, radiculopathy, suspected PVD 3 times per week for 3 weeks eval and treat, exercise, modalities per therapist's discretion; HEP
--- OUTSIDE RECORDS SUMMARY | 2024-07-10 09:01 | XMS_ITS | CONTINUITY OF CARE DOCUMENT ---
Author Name meganjessicaitalo Address Unknown Organization [facility] Address [address] [facility] [address] [place] [address] Phone [phone] Care Team Providers Care Airflight Attendants Supervisor Name Role Phone Chris Ray MD Unavailable [phone] EMELIA VERGARA MD Unavailable [phone] EMELIA VERGARA MD Unavailable [phone] INSURANCE PROVIDERS Payer name Policy type / Coverage type [place] red alliance party ID AETNA [facility] Other [id number] [place] Medicare [id number]
--- OUTSIDE RECORDS SUMMARY | 2024-07-10 09:01 | XMS_ITS | Encounter Summary ---
Author Organization [facility] Address [address] [place] [address] Care Team Providers Care Food Services Manager Name Role Phone Yordy Correia MD Primary Care Provider [phone] Encounter Details Date Type Department Care Team (Late st Contact Info) Description 05/29/2019 Lab Requisition [facility] Care DermPath Lab [address] [place] [id number] Biju Coulter MD [address] [facility] [address] [place] [address] Social History Tobacco Use Types Packs/Day Years Used Date Smoking Tobacco: Never Assessed Sex and Gender Information Value Date Recorded Sex Assigned at Not on file 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 Sex 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 Gender Identity Not on file Sexual Orientation Not on file documented as of this encounter Plan of Treatment Upcoming Encounters Date Type Department Care Team (Latest Contact Info) Description 07/20/2024 1:00 PM CDT Appointment Infusion Services at [address] [place] [address] 07/27/2024 1:00 PM CDT Appointment Infusion Services at [address] [place] [address] 08/03/2024 1:00 PM CDT Appointment Infusion Services at [address] [place] [address] 08/09/2024 9:54 AM CDT Hospital Encounter [facility] - Perioperative Surgery [address] [place] [address] [place] [address] [facility] [address] [place] [address] Surgery General 08/09/2024 9:54 AM CDT - 08/09/2024 12:12 PM CDT Surgery [facility] - Perioperative Surgery [address] [place] [address] [place] [address] [facility] [address] [place], [place] [id number] RIGHT TOTAL KNEE ARTHROPLASTY 08/09/2024 10:15 AM CDT Procedure visit [facility] Orthopedics [address] [facility], [facility] [address] [place] [phone] Scheduled Procedures Name Priority Associated Diagnoses Date/Ti me ARTHROPLASTY TOTAL KNEE 07/21 9:54 AM CDT documented as of this encounter Procedures Procedure Name Priority Date/Time Associated Diagnosis Comments DERMATOPATHOLOGY Routine 05/25/2019 12:0 0 AM DOG HAIR CLIPPER documented in this encounter Results * DERMATOPATHOLOGY (05/25/2019 12:00 AM DOG HAIR CLIPPER) Case Report Dermatopathology Report Case: [id number] Authorizing Provider: Biju Coulter MD Collected: 05/25/2019 12:00 AM Ordering Location: [facility] DermPath Lab Received: 05/29/2019 07:07 AM Pathologist: Farida Ramirez MD Specimen: Skin, right back 0 4:17 PM CDT DERMATOPATHOLOGY LABORATORY Final Diagnosis Specimen A. 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 Path # [id number]. 0 4:17 PM CDT DERMATOPATHOLOGY LABORATORY Gross Description Specimen A: Received is one formalin filled container labeled with the patient's name and designated right back. The specimen consists of a shave biopsy measuring 4t9m8ga. Jar 0. 0 4:17 PM CDT DERMATOPATHOLOGY LABORATORY Microscopic Description Specimen A. SKIN, right back: Sections show acantholysis, dyskeratosis, and an inflammatory cell infiltrate. COMMENT: In the correct clinical setting these histological findings can be seen in transient acantholytic dermatosis (Chuckey's disease). 0 4:17 PM CDT DERMATOPATHOLOGY LABORATORY Disclaimer An external and internal positive and negative controls are appropriate for the histochemical, immunohistochemical and immunofluorescence stain(s) in this case (if any), except where stated explicitly. The performance characteristics of the stain(s) cited in this report were developed and its performance characteristic determined by the Dermatopathology Laboratory at [facility], directed by Dr. Karin Ramirez. These tests need not be, and therefore are not, approved by the [place] Food and Drug Administration. The tests are used for clinical purposes. Billing Codes Specimen Charges Stain Charges 82885 1 0 4:17 PM CDT DERMATOPATHOLOGY LABORATORY Embedded Images 0 4:17 PM CDT DERMATOPATHOLOGY LABORATORY Pathology/Cytolog y TISSUE SPECIMEN FROM SKIN / Unknown 05/25/2019 05/29/2019 7:07 AM CDT us Biju Coulter MD LAB - PATHOLOGY/CYTOLOGY ORDER ANTWAN Final Result DERMATOPATHOLOGY LABORATORY [facility] - Department of Dermatology [address] [place] [address], [address]th [place] [address], [facility] [phone] documented in this encounter Visit Diagnoses Not on filedocumented in this encounter Care Teams Food Services Manager Relationship Specialty Start Date End Date Yordy Correia MD [address] [place] [address] [address] [place] [address] PCP - General 05/26/19 documented as of this encounter
--- OUTSIDE RECORDS SUMMARY | 2024-07-10 09:01 | XMS_ITS ---
Author Organization [facility], Address [address] [facility] [address] [place] [address] Care Team Providers Care Supervisor Boiler Repair Name Role Phone Yordy Correia MD Primary Care Provider Alex Rocha [phone] ALLERGIES Allergen (clinical drug ingredient) Drug/Non Drug Allergy documented on EMR Reaction Allergy Type Onset Date Status amoxicillin Amoxicillin rash Drug Allergy Act zain penicillamine Penicillamine rash Drug Allergy Active REASON FOR VISIT f/u after TF SARI MEDICATIONS Medication SIG (Take, Route, Frequency, Duration) Notes Start Date End Date Status traMADol HCl 50 MG 1 tablet as needed Orally every 4-6 hours for 7 days 01/27/2024 Not-Taking Aleve Not-Taking Omeprazole Not-Takin g Gabapentin Active Magnesium Not-Taking Lorazepam Active Simvastatin Active Tamsulosin HCl Activ e amLODIPine Besylate Active Multivitamin Active Align Active Pantoprazole Sodium Active Benadryl Active Tylenol Not-Taking CoQ10 Active diazePAM Active Ibuprofen 800 MG TAKE 1 TABLET BY MOUTH THREE TIMES A DAY WITH FOOD OR MILK NEEDED FOR 30 DAYS for 30 LAST FILL FROM US. 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 and Knee pain, right M25.561 ASSESSMENTS Encounter Date Diagnosis Assessment Notes Treatment Notes Treatment Clinical Notes 03/06/2024 HNP (herniated nucleus pulposus), lumbar (ICD-10 - M51.26) 03/06/2024 Lumbar radiculopathy (ICD-10 - M54.16) 03/06/2024 Disc Degeneration, Lumbar Region with Leg Pain (ICD-10 - M51.361) 03/06/2024 Scoliosis (ICD-10 - M41.9) 03/06/2024 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 He ambulates with a limp favoring the right lower extremity NECK: Exam reveals moderat e kyphosis. Cervical ROM is reduced in extension. Spurling's test negative HEART: Regular rate and rhy thm LUNGS: Clear to auscultatio n in all nye ABDOMEN: No tenderness to pal pation, bowel sounds present all four quadrants NEUROLOGIC: Upper extremity neur ologic examination exam reveals symmetric DTR's, intact sensation, 5+/5+ motor strength. Hue's sign negative. Lower extremity neurologic examination reveals decreased sensation involving the right anterior thigh and right posterior calf. Right EHL and anterior tibialis weakness at 4+/5+. Reflexes are symmetric. SLR testing negative SKIN: No evidence of skin rashes or dermal lesions MUSCULOSKELETAL: Thoracic exam reveal s no tenderness to palpation. No spasm. There is mild kyphosis. Lumbar exam reveals tension, but no spasm. There is a back incision from L3 to S1. No erythema. No induration. ROM of the lumbar spine reveals forward flexion to 95 degrees, extension to 25 degrees, side-bending to 35 degrees. Lumbosacral exam reveals no tenderness to palpation involving the SI region PSYCHIATRIC: Mood and affect appe ar normal HEENT: No masses, PERRLA, E OM intact, no nasal drainage, no lymphadenopathy JOINTS: Hip log roll testing negative. Hip ROM is mildly diminished bilaterally HEMATOLOGIC: No evidence of exces sive bruising or bleeding MRI Imaging Studies LUMBAR SPINE MRI: MRI study through the lumbar spine reveals evidence of a scoliotic deformity. Disc degeneration of all levels. At L2-3 there is severe disc space collapse and mild lateral recess stenosis. L3-4 has foraminal narrowing. L4-5 has evidence of right-sided foraminal disc protrusion with severe right foraminal stenosis. L5-S1 has evidence of disc protrusion with lateral recess and foraminal narrowing
--- OUTSIDE RECORDS SUMMARY | 2024-07-10 09:01 | XMS_ITS | Encounter Summary ---
Author Organization [facility] Address [address] [place] [address] Care Team Providers Care Winding Department Supervisor Name Role Phone Yordy Correia MD Primary Care Provider [phone]- [phone] Encounter Details Date Type Department Care Team (Late st Contact Info) Description 11/17/2022 Lab Requisition [facility] - DermPath Lab [address] [facility], [facility] [place] [phone] Biju Coulter MD [address] [facility] [place] [address] Social History Tobacco Use Types Packs/Day Years Used Date Smoking Tobacco: Never Assessed Sex and Gender Information Value Date Recorded Sex Assigned at Not on file 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 Gender Identity Not on file Sexual Orientation Not on file documented as of this encounter Plan of Treatment Upcoming Encounters Date Type Department Care Team (Latest Contact Info) Description 07/20/2024 1:00 PM CDT Appointment Infusion Services at [address] [place] [address] 07/27/2024 1:00 PM CDT Appointment Infusion Services at [address] [place] [address] 08/03/2024 1:00 PM CDT Appointment Infusion Services at [address] [address] 08/09/2024 9:54 AM CDT Hospital Encounter [facility] - Perioperative Surgery [address] [place] [address] [place] [address] [facility] [address] [place] [address] Surgery General 08/09/2024 9:54 AM CDT - 08/09/2024 12:12 PM CDT Surgery [facility] - Perioperative Surgery [address] [place] [address] [place] [address] [facility] [address] [place] [address] RIGHT TOTAL KNEE ARTHROPLASTY 08/09/2024 10:15 AM CDT Procedure visit [facility] Orthopedics [address] [facility], [address] [place] [address] Scheduled Procedures Name Priority Associated Diagnoses Date/Ti me ARTHROPLASTY TOTAL KNEE 07/21 9:54 AM CDT documented as of this encounter Procedures Procedure Name Priority Date/Time Associated Diagnosis Comments DERMATOPATHOLOGY Routine 11/17/2022 3:33 AM CDT documented in this encounter Results * DERMATOPATHOLOGY (11/17/2022 3:33 AM CDT) Case Report Dermatopathology Report Case: [id number] Authorizing Provider: Biju Coulter MD Collected: 11/17/2022 03:33 AM Ordering Location: [facility] DermPath Lab Received: 11/17/2022 04:18 PM Pathologist: Farida Ramirez MD Specimen: Skin, right volar FA 3 4:28 PM CDT DERMATOPATHOLOGY LABORATORY Final Diagnosis Specimen A. SKIN, right volar FA: BASAL CELL CARCINOMA, INFILTRATIVE PATTERN (C44.612) 3 4:28 PM CDT DERMATOPATHOLOGY LABORATORY Clinical History SCCA vs [place] Path#[id number] 3 4:28 PM CDT DERMATOPATHOLOGY LABORATORY Gross Description Specimen A: Received is one formalin filled container labeled with the patient's name and designated right volar FA. The specimen consists of a shave biopsy measuring 8x7x1 mm. Jar 0. 3 4:28 PM CDT DERMATOPATHOLOGY LABORATORY Microscopic Description Specimen A. SKIN, right volar FA: Within the dermis there are nodular aggregates of basaloid cells associated with fibromyxoid stroma and epithelial-stromal clefts. At the advancing margin of the neoplasm, there are smaller angulated nests that infiltrate the dermis. 3 4:28 PM CDT DERMATOPATHOLOGY LABORATORY Disclaimer An external and internal positive and negative controls are appropriate for the histochemical, immunohistochemical and immunofluorescence stain(s) in this case (if any), except where stated explicitly. The performance characteristics of the stain(s) cited in this report were developed and its performance characteristic determined by the Dermatopathology Laboratory at [facility], directed by Dr. Karin Ramirez. These tests need not be, and therefore are not, approved by the [place] Food and Drug Administration. The tests are used for clinical purposes. Billing Codes Specimen Charges Stain Charges 15496 1 3 4:28 PM CDT DERMATOPATHOLOGY LABORATORY Embedded Images 3 4:28 PM CDT DERMATOPATHOLOGY LABORATORY Pathology/Cytolo gy TISSUE SPECIMEN FROM SKIN / Unknown 11/17/2022 3:33 AM CDT 11/17/2022 4:18 PM CDT us Biju Coulter MD LAB - PATHOLOGY/CYTOLOGY ORDER ANTWAN Final Result DERMATOPATHOLOGY LABORATORY [facility] - Department of Dermatology [address], [address] [phone] documented in this encounter Visit Diagnoses Not on filedocumented in this encounter Care Teams Winding Department Supervisor Relationship Specialty Start Date End Date Yordy Correia MD [facility] [place] [address] [address] [place] [phone] PCP - General 05/26/19 documented as of this encounter
--- OUTSIDE RECORDS SUMMARY | 2024-07-10 09:01 | XMS_ITS | Encounter Summary ---
Author Organization [facility] Address [address] [place] [address] Care Team Providers Care Payroll Services Analyst Name Role Phone Yordy Correia MD Primary Care Provider [phone]- [phone] Encounter Details Date Type Department Care Team (Late st Contact Info) Description 04/21/2023 Lab Requisition [facility] - DermPath Lab [address] [facility], [place] [phone] Biju Coulter MD [address] [facility] [place] [address] Social History Tobacco Use Types Packs/Day Years Used Date Smoking Tobacco: Never Assessed Sex and Gender Information Value Date Recorded Sex Assigned at Not on file 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 Gender Identity Not on file Sexual Orientation Not on file documented as of this encounter Plan of Treatment Upcoming Encounters Date Type Department Care Team (Latest Contact Info) Description 07/20/2024 1:00 PM CDT Appointment Infusion Services at [address] [place] [address] 07/27/2024 1:00 PM CDT Appointment Infusion Services at [address] [place] [address] 08/03/2024 1:00 PM CDT Appointment Infusion Services at [address] [address] 08/09/2024 9:54 AM CDT Hospital Encounter [facility] - Perioperative Surgery [address] [place] [address] [place] [address] [facility] [address] [place] [address] Surgery General 08/09/2024 9:54 AM CDT - 08/09/2024 12:12 PM CDT Surgery [facility] - Perioperative Surgery [address] [place] [address] [place] [address] [facility] [address] [place] [address] RIGHT TOTAL KNEE ARTHROPLASTY 08/09/2024 10:15 AM CDT Procedure visit [facility] Orthopedics [address] [facility], [facility] [address] [place] [address] Scheduled Procedures Name Priority Associated Diagnoses Date/Ti me ARTHROPLASTY TOTAL KNEE 07/21 9:54 AM CDT documented as of this encounter Procedures Procedure Name Priority Date/Time Associated Diagnosis Comments DERMATOPATHOLOGY Routine 04/19/2023 3:33 AM CHILD CARE ATTENDANT documented in this encounter Results * DERMATOPATHOLOGY (04/19/2023 3:33 AM CHILD CARE ATTENDANT) Case Report Dermatopathology Report Case: [id number] Authorizing Provider: Biju Coulter MD Collected: 04/19/2023 03:33 AM Ordering Location: [facility] DermPath Lab Received: 04/21/2023 09:45 AM Pathologist: Makenzie Irving MD Specimen: Skin, left lateral FA 12:40 PM CHILD CARE ATTENDANT DERMATOPATHOLOGY LABORATORY Amended Report At the request of the clinician's office the site is changed from left lateral FA to right lateral FA 12:40 PM CHILD CARE ATTENDANT DERMATOPATHOLOGY LABORATORY Final Diagnosis Specimen A. SKIN, right lateral FA: SQUAMOUS CELL CARCINOMA, WELL DIFFERENTIATED (C44.622) (see microscopic description) 4 12:40 PM CHILD CARE ATTENDANT DERMATOPATHOLOGY LABORATORY Amendment electronically signed by Makenzie Irving MD on 04/27/2023 at 12:40 PM Clinical History BCCA vs. SCCA. Path# [id number] 4 12:40 PM CHILD CARE ATTENDANT DERMATOPATHOLOGY LABORATORY Gross Description Specimen A: Received is one formalin filled container labeled with the patient's name and designated right lateral FA. The specimen consists of a shave biopsy measuring 7x6x2 mm. Jar 0. 12:40 PM [facility] DERMATOPATHOLOGY LABORATORY Microscopic Description Specimen A. SKIN, right lateral FA: Arising in the epidermis and extending into the dermis there are irregularly shaped aggregates of keratinocytes showing evidence of premature cornification. Additional deeper sections were obtained and reviewed. 4 12:40 PM [facility] DERMATOPATHOLOGY LABORATORY Disclaimer An external and internal positive and negative controls are appropriate for the histochemical, immunohistochemical and immunofluorescence stain(s) in this case (if any), except where stated explicitly. The performance characteristics of the stain(s) cited in this report were developed and its performance characteristic determined by the Dermatopathology Laboratory at [facility], directed by Dr. Karin Ramirez. These tests need not be, and therefore are not, approved by the [place] Food and Drug Administration. The tests are used for clinical purposes. Billing Codes Specimen Charges Stain Charges 18160 1 4 12:40 PM [facility] DERMATOPATHOLOGY LABORATORY Embedded Images 12:40 PM [facility] DERMATOPATHOLOGY LABORATORY Pathology/Cytolo gy TISSUE SPECIMEN FROM SKIN / Unknown 04/19/2023 3:33 AM CHILD CARE ATTENDANT 04/21/2023 9:45 AM CHILD CARE ATTENDANT us Biju Coulter MD LAB - PATHOLOGY/CYTOLOGY ORDER ANTWAN Edited Result - Final DERMATOPATHOLOGY LABORATORY [facility] - Department of Dermatology [facility] Medicine [address] [place] [address], [address] [phone] documented in this encounter Visit Diagnoses Not on filedocumented in this encounter Care Teams Payroll Services Analyst Relationship Specialty Start Date End Date Yordy Correia MD [address] [place] [address] [address] [place] [address] PCP - General 05/26/19 documented as of this encounter
--- OUTSIDE RECORDS SUMMARY | 2024-07-10 09:01 | XMS_ITS | Continuity of Care Document ---
Author Organization [facility] Address [address] [place] [address] Phone Care Team Providers Care Outside Event Sales Specialist Name Role Phone Amado Ruiz MD Unavailable Unavailable Procedures Procedure Date MRI, LUMBAR SPINE W & W/O CONTRAST Injection, gadoterate meglumine, 0.1 ml Advance Directives Directive Yes / No Effective Date File Name No Information Encounters Encounter Description Practice Location Reason(s) For Visit Diagnoses Date Provider Providers Copied on Encounter [facility], [address], [place], [place], [id number], [place] tel:[phone] [facility] No Information Sara Fischer. [address] [place], [place], [id number], [place]. tel:[phone] Referring Provider: Alex Buck DO, [address] [facility] [address], [place], [address]. tel:[phone] Family History Family Member Type Diagnosis Age At Onset No Information Payers Payer name Insurance type Covered constitution party ID Authoriza tion(s) MEDICARE MB [id number] [employer] S[employer]IOR [employer]MENTAL CI [id number] Social History Type Description Quantity Date Captured Comments Sex Male Smoking Status No Information Chief Complaint And Reason For Visit No Information Reason For Referral Reason For Referral No Information History Of Present Illness Encounter Date Complaint History Of Prese nt Illness No Information Functional Status Date Functional Assessmen t No Information Instructions Date Instruction Additional Infor mation No Information Assessments Type Assessment Date No Information Patient Care Teams Name Effective Dates (start - stop) Status Members No Information
--- OUTSIDE RECORDS SUMMARY | 2024-07-10 09:01 | XMS_ITS | Encounter Summary ---
Author Organization [facility] Address [address] [place] [address] Care Team Providers Care Income Tax Administrator Name Role Phone Yordy Correia MD Primary Care Provider [phone] Encounter Details Date Type Department Care Team (Late st Contact Info) Description 01/08/2023 Lab Requisition [facility] - DermPath Lab [address] 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 Gender Identity Not on file Sexual Orientation Not on file documented as of this encounter Plan of Treatment Upcoming Encounters Date Type Department Care Team (Latest Contact Info) Description 07/20/2024 1:00 PM CDT Appointment Infusion Services at [address] [place] [address] 07/27/2024 1:00 PM CDT Appointment Infusion Services at [address] [place] [address] 08/03/2024 1:00 PM CDT Appointment Infusion Services at [address] [address] 08/09/2024 9:54 AM CDT Hospital Encounter [facility] - Perioperative Surgery [address] [place] [address] [place] [address] [facility] [address] [place] [address] Surgery General 08/09/2024 9:54 AM CDT - 08/09/2024 12:12 PM CDT Surgery [facility] - Perioperative Surgery [address] [place] [address] [place] [address] [facility] [facility] [address] [place] [address] RIGHT TOTAL KNEE ARTHROPLASTY 08/09/2024 10:15 AM CDT Procedure visit [facility] [address] [facility] [address] [place] [address] Scheduled Procedures Name Priority Associated Diagnoses Date/Ti me ARTHROPLASTY TOTAL KNEE 07/21 9:54 AM CDT documented as of this encounter Procedures Procedure Name Priority Date/Time Associated Diagnosis Comments DERMATOPATHOLOGY Routine 01/06/2023 12:0 0 AM CDT documented in this encounter Results * DERMATOPATHOLOGY (01/06/2023 12:00 AM CDT) Case Report Dermatopathology Report Case: [id number] Authorizing Provider: Biju Coulter MD Collected: 01/06/2023 12:00 AM Ordering Location: [facility] Derm[facility] Lab Received: 01/08/2023 08:30 AM Pathologist: Danisha Martinez MD Specimen: Skin, right volar forearm 1:52 PM CDT DERMATOPATHOLOGY LABORATORY Final Diagnosis Specimen A. 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 BCCA. Path# [id number]. Check Margins. 1:52 PM CDT DERMATOPATHOLOGY LABORATORY Gross Description Specimen A: Received is one formalin filled container labeled with the patient's name and designated right volar forearm. The specimen consists of a non-oriented ellipse of skin measuring [id number] mm. The epidermal surface is unremarkable. The margin is inked green. The 12 o'clock and 6 o'clock tips are submitted in cassette 1. The remainder of the ellipse is serially sectioned and submitted in cassette 2. Jar 0. 1:52 PM CDT DERMATOPATHOLOGY LABORATORY Microscopic Description Specimen A. SKIN, right volar forearm: There are fibroblasts and collagen bundles oriented parallel to the skin surface. There are elongated blood vessels, some of which are oriented perpendicular to the skin surface. No basal cell carcinoma is identified. 1:52 PM CDT DERMATOPATHOLOGY LABORATORY Disclaimer An external and internal positive and negative controls are appropriate for the histochemical, immunohistochemical and immunofluorescence stain(s) in this case (if any), except where stated explicitly. The performance characteristics of the stain(s) cited in this report were developed and its performance characteristic determined by the Dermatopathology Laboratory at [facility], directed by Dr. Karin Ramirez. These tests need not be, and therefore are not, approved by the [place] Food and Drug Administration. The tests are used for clinical purposes. Billing Codes Specimen Charges Stain Charges 73732 1 1:52 PM CDT DERMATOPATHOLOGY LABORATORY Embedded Images 1:52 PM CDT DERMATOPATHOLOGY LABORATORY Pathology/Cytolog y TISSUE SPECIMEN FROM SKIN / Unknown 01/06/2023 01/08/2023 8:30 AM CDT us Biju Coulter MD LAB - PATHOLOGY/CYTOLOGY ORDER ANTWAN Final Result DERMATOPATHOLOGY LABORATORY [facility] - Department of Dermatology [facility] [address] [place] [address], [address] [phone] documented in this encounter Visit Diagnoses Not on filedocumented in this encounter Care Teams Income Tax Administrator Relationship Specialty Start Date End Date Yordy Correia MD [address] [place] [address] [address] [place] [address] PCP - General 05/26/19 documented as of this encounter
--- OUTSIDE RECORDS SUMMARY | 2024-07-10 09:01 | XMS_ITS | Encounter Summary ---
Author Organization [facility] Address [address] [place] [address] Care Team Providers Care Phone Operator Name Role Phone Yordy Correia MD Primary Care Provider [phone] Encounter Details Date Type Department Care Team (Late st Contact Info) Description 05/13/2021 Lab Requisition [facility] Care DermPath Lab [address] [place] [phone] Biju Coulter MD [address] [facility] [place] [address] Social History Tobacco Use Types Packs/Day Years Used Date Smoking Tobacco: Never Assessed Sex and Gender Information Value Date Recorded Sex Assigned at Not on file 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 Gender Identity Not on file Sexual Orientation Not on file documented as of this encounter Plan of Treatment Upcoming Encounters Date Type Department Care Team (Latest Contact Info) Description 07/20/2024 1:00 PM CDT Appointment Infusion Services at [address] [place] [address] 07/27/2024 1:00 PM CDT Appointment Infusion Services at [address] [place] [address] 08/03/2024 1:00 PM CDT Appointment Infusion Services at [address] [place] [address] 08/09/2024 9:54 AM CDT Hospital Encounter [facility] - Perioperative Surgery [id number] [place] [address] [place] [address] [facility] [address] [place] [address] Surgery General 08/09/2024 9:54 AM CDT - 08/09/2024 12:12 PM CDT Surgery [facility] - Perioperative Surgery [address] [place] [address] [place] [address] [facility] [address] [place] [address] RIGHT TOTAL KNEE ARTHROPLASTY 08/09/2024 10:15 AM CDT Procedure visit [facility] [address] [facility] [address] [place] [phone] Scheduled Procedures Name Priority Associated Diagnoses Date/Ti me ARTHROPLASTY TOTAL KNEE 07/21 9:54 AM CDT documented as of this encounter Procedures Procedure Name Priority Date/Time Associated Diagnosis Comments DERMATOPATHOLOGY Routine 05/12/2021 12:0 0 AM FIRE CONTROL MECHANIC documented in this encounter Results * DERMATOPATHOLOGY (05/12/2021 12:00 AM FIRE CONTROL MECHANIC) Case Report Dermatopathology Report Case: [id number] Authorizing Provider: Biju Coulter MD Collected: 05/12/2021 12:00 AM Ordering Location: [facility] DermPath Lab Received: 05/13/2021 03:41 PM Pathologist: Makenzie Irving MD Specimen: Skin, left sternal notch 2 10:54 AM [facility] Final Diagnosis Specimen A. 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 Path # [id number]. 2 10:54 AM [facility] Gross Description Specimen A: Received is one formalin filled container labeled with the patient's name and designated left sternal notch. The specimen consists of a shave biopsy measuring [id number]. Jar 0. 2 10:54 AM [facility] Microscopic Description Specimen A. SKIN, left sternal notch: The epidermis shows parakeratosis, full thickness disorderly maturation of keratinocytes, mitoses at different levels, and dyskeratotic cells. 2 10:54 AM [facility] Disclaimer An external and internal positive and negative controls are appropriate for the histochemical, immunohistochemical and immunofluorescence stain(s) in this case (if any), except where stated explicitly. The performance characteristics of the stain(s) cited in this report were developed and its performance characteristic determined by the Dermatopathology Laboratory at [facility], directed by Dr. Karin Ramirez. These tests need not be, and therefore are not, approved by the [place] Food and Drug Administration. The tests are used for clinical purposes. Billing Codes Specimen Charges Stain Charges 22239 1 2 10:54 AM [facility] Embedded Images 2 10:54 AM [facility] Pathology/Cytolog y TISSUE SPECIMEN FROM SKIN / Unknown 05/12/2021 05/13/2021 3:41 PM FIRE CONTROL MECHANIC us Biju Coulter MD LAB - PATHOLOGY/CYTOLOGY ORDER ANTWAN Final Result DERMATOPATHOLOGY LABORATORY [facility] - Department of Dermatology [address], [address] [phone] documented in this encounter Visit Diagnoses Not on filedocumented in this encounter Care Teams Phone Operator Relationship Specialty Start Date End Date Yordy Correia MD [address] [place] [address] [address] [place] [address] PCP - General 05/26/19 documented as of this encounter
== END 2024-07-10 08:26 | disposition home or self-care (01) ==
PROVIDERS: PCP Internal Medicine; Visit Provider Nurse Practitioner Family
DX: K21.9 Gastro-esophageal reflux disease without esophagitis (principal); K44.9 Diaphragmatic hernia without obstruction or gangrene
CPT/HCPCS: 74246; 74248

== ENCOUNTER 2025-01-22 07:09 | Outpatient (CLI) | payer MEDICARE, SELFPAY ==
--- NOTE | ~2025-01-22 | MR_ITS ---
EXAMINATION: MR lumbar spine wo con DATE: 01/22/2025 07:42 INDICATION: Spinal stenosis. Low back pain. TECHNIQUE: Magnetic resonance imaging (MRI) of the lumbar spine was performed without intravenous contrast. Sequences included sagittal T2-weighted FSE, sagittal T2-weighted FS FSE, sagittal T1-weighted FSE, and axial T2-weighted FSE. COMPARISON: None FINDINGS: There is 17 degrees dextroscoliosis of lumbar spine. There is 3 mm anterolisthesis of L4 on L5. There is mild chronic anterior wedging of T11 and T12 vertebral bodies. There is an old healed fracture of the sacrum. There is moderately decreased disc height at L1-L2 and severely decreased disc height from L2-L3 through L5-S1. The distal spinal cord signal intensity is normal. The conus medullaris is at L1-L2. The following disc levels are specifically discussed: L1-L2: The disc is bulging. There is moderate right and mild left facet joint osteoarthritis. There is mild bilateral neural foraminal stenosis. There is mild central canal stenosis. L2-L3: The disc is bulging and has an annular fissure. There is moderate right and severe left facet joint osteoarthritis. There is mild right and moderate left neural foraminal stenosis. There is mild central canal stenosis. There is posterior decompression. L3-L4: The disc is bulging and has an annular fissure. There is severe bilateral facet joint osteoarthritis. There is moderate bilateral neural foraminal stenosis. There is mild central canal stenosis. There is posterior decompression. L4-L5: The disc is bulging and has an annular fissure. There is severe bilateral facet joint osteoarthritis. There is moderate bilateral neural foraminal stenosis. There is mild central canal stenosis. There is posterior decompression. L5-S1: The disc is bulging and has an annular fissure. There is severe bilateral facet joint osteoarthritis. There is moderate bilateral neural foraminal stenosis. There is mild central canal stenosis. IMPRESSION: 1. Severe lumbar spondylosis. 2. Lumbar dextroscoliosis. Reviewed, dictated and finalized at location E. RACTIVE WEB DEVELOPER
== END 2025-01-22 07:10 | disposition home or self-care (01) ==
LOC: MICIMG 07:10
PROVIDERS: PCP Internal Medicine; Visit Provider Physician Assistant
DX: M48.062 Spinal stenosis, lumbar region with neurogenic claudication (principal); M96.1 Postlaminectomy syndrome, not elsewhere classified; M47.26 Other spondylosis with radiculopathy, lumbar region
CPT/HCPCS: 72148